=== PATIENT | female | born 1985 | race Caucasian/White ===

== ENCOUNTER 2018-04-05 08:26 | Day surgery (SDC) | payer OTHER, MEDICAID, SELFPAY ==
[2018-03-30 13:01] VITALS: BMI 25.5
[2018-04-05] VITALS (9 sets, daily range): BP systolic 80–114; BP diastolic 50–72; PULSE 50–78; RESP 10–19; TEMP 36.1–36.6; O2SAT 97–100; BMI 25.5
--- NOTE | 2018-04-05 | PATH_ITS ---
[facility] Accession Number: [id number] . 01 Material submitted: . PART A: RIGHT BREAST PART B: RIGHT BREAST TISSUE AT NIPPLE . 02 Diagnosis: A-B: Right Breast and Right Breast Tissue at Nipple, Excision: No evidence of atypical hyperplasia, in-situ, or invasive carcinoma. Dense fibrous and lobular breast parenchyma. 6mm focus with multiple small blood vessels (see comment). Fresh hemorrhage with associated neutrophils. JRL/04/08/2018 . 02 Comment: There is no neoplastic process in the excised tissue. The chronic active inflammation seen in the patient's previous biopsy is not seen in the excisional specimen. There is mild neutrophilic activity in an area of fresh hemorrhage, which may be related to the procedure. There is also fresh hemorrhage around a focal area of small to medium sized blood vessels which may represent a benign vascular lesion/arteriovenous malformation in the appropriate clinical and radiographic setting. The dense breast tissue, surrounded by adipose tissue may also explain a mass in the appropriate radiographic setting. . As part of routine water quality control engineer, Dr. Ramirez also reviewed this case and agrees with the interpretation. . 02 Electronically signed: . Sara Kelly MD, Pathologist NPI- [id number] . 01 Gross description: . (A) Received in formalin, labeled 1) Right breast lumpectomy (long-lateral), (short-superior), (double-deep), is a piece of breast tissue (4.0 cm AP, 2.8 cm SI, 1.3 cm ML) with no overlying skin. The specimen is oriented with three black sutures (long-lateral, short-superior, double-deep). A localization wire enters the central anterior aspect. The specimen is serially sectioned AP into 16 slices with the anterior and posterior resection margins as slices #1 and #16, respectively. The breast tissue is fatty and focally hemorrhagic within slices #5-#10. The localization wire ends adjacent to the hemorrhagic area in slice #9. No nodules, masses or lesions are identified. Ink code: purple-anterior; yellow-posterior; black-superior; orange-inferior; green-medial; blue-lateral. Section code: (A1) anterior resection margin, perpendicularly sectioned; (A2) slice #2; (A3) slice #3; (A4) slice #4; (A5) slice #5; (A6) slice #6; (A7) slice #7; (A8) slice #8; (A9) slice #9, slice containing the end of the localization wire; (A10) slice #10; (A11) slice #11; (A12) slice #12; (A13) slice #13; (A14) slice #14; (A15) slice #15; (A16) posterior resection margin, perpendicularly sectioned. Note: No biopsy marker is identified. (B) Received in formalin, labeled 2-additional right breast tissue at nipple, is unoriented piece of adipose tissue (1.6 x 0.9 x 0.6 cm). No nodules, masses or lesions are identified. The tissue is inked black, bisected, and entirely submitted in cassette B1. . Note: Approximate total fixation time in formalin for both specimens-31 hours 30 minutes, calculated using a collection date of 04/05/2018 with no collection time given. ([id number]) /MRV . 02 Microscopic: . Special stains for infectious organisms were performed to evaluate an area of neutrophilic activity. The control stains showed appropriate reactivity. . RESULTS: AFB: NEGATIVE GMS: NEGATIVE GRAM STAIN: NEGATIVE . INTERPRETATION: There is no evidence of mycobacteria, fungus, or bacteria by special stains, respectively. . 02 Pathologist provided ICD-10: N63.10 . 02 CPT . 279107, 894127, 535261, [id number], [id number] Performed at: 01 [facility] [address] [address], [place], [place] [id number] MD Claude Carrion MD Phone: [phone] Performed at: 02 [facility] [address] [place] [id number] MD Robert Petersen MD Phone: [phone]
--- NOTE | 2018-04-05 | DI.MG.S_ITS ---
UNILATERAL RIGHT DIGITAL DIAGNOSTIC MAMMOGRAM: 04/05/2018 CLINICAL: Pre op wire localization with ultrasound. Comparison is made to exams dated: 02/15/2018 mammogram, 01/10/2018 breast MRI, and 12/13/2017 mammogram - [facility]. The tissue of the right breast is heterogeneously dense. This may lower the sensitivity of mammography. There is a biopsy site marker on the right breast at 3 o'clock, and an US guided localization of this marker has been performed placing the wire tip 4mm dorsal to the biopsy site marker on both CC and MLO views. The marker clip placement is not significantly changed from prior post biopsy mammogram, and correlates with ultrasound findings. IMPRESSION: SUSPICIOUS OF MALIGNANCY Excellent positioning of the localization wire to guide surgical access to the small area of prior biopsy, for lumpectomy today. Specimen radiograph is anticipated thereafter. NOTE: For mammograms, a report in lay terms will be sent to the patient. Approximately 15% of breast malignancies will not be visualized mammographically. In the management of a palpable breast mass, a negative mammogram must not discourage biopsy of a clinically suspicious lesion. Electronically Signed By: Ronny Kelly M.D. [facility]/:04/08/2018 11:45:50 ACR BI-RADS Category 4: Suspicious abnormality 3344F
--- NOTE | 2018-04-05 | DI.MG.S_ITS ---
SPECIMEN RIGHT BREAST: 04/05/2018 CLINICAL: Left breast specimen. Correlation is made to exams dated: 04/05/2018 localization, 02/15/2018 mammogram, and 01/10/2018 breast MRI [facility]. A surgical specimen was imaged from the previous biopsy site located in the right breast at 3 o'clock anterior depth, with localization wire within. IMPRESSION: SPECIMEN The imaged specimen includes the distal portion of the localization wire and does not include biopsy clip. Ronny Kelly M.D. [facility]/:04/06/2018 15:01:03
--- NOTE | 2018-04-05 | DI.US.S_ITS ---
ULTRASOUND GUIDED WIRE LOCALIZATION RIGHT BREAST WITH POST MAMMOGRAPHIC IMAGING AND RADIOGRAPHIC SPECIMEN IMAGIN04/05/2018 CLINICAL: Pre-op wire localization. Correlation is made to exams dated: 02/15/2018 ultrasound biopsy, 02/15/2018 mammogram, 01/10/2018 breast MRI, 12/13/2017 ultrasound, and 12/13/2017 mammogram - [facility]. A wire localization using ultrasound guidance was performed for the marker clip located in the right breast at 3 o'clock anterior depth. This was described on the previous mammography and ultrasound reports. The skin was prepped in the usual manner. Local anesthetic was administered to the access site. A skin drew was made in the breast. The localization was approached from the lateral aspect. A J-hook wire was inserted adjacent to the marker through an introducer device under ultrasound guidance. A sterile dressing was applied to the access site. Post placement mammographic imaging demonstrates the tip 4mm posterior from the marker. IMPRESSION: WIRE LOCALIZATION Wire localization for the marker clip in the right breast at 3 o'clock anterior depth was successful. The imaged specimen includes the distal portion of the localization wire and does not include biopsy clip. Ronny Kelly M.D. [facility]/:04/08/2018 11:44:24
--- NOTE | 2018-04-05 09:04 | SUR.PREOP ---
hcg test done and is negative see package.. unable to enter into [employer] system.
--- NOTE | 2018-04-05 11:37 | PM.PREOP ---
Pre-operative Note Interval Note Pre-op Check: History & Physical Reviewed by Physician and Exam Performed H&P completed within 30 days and has changed as indicated here:: Patient seen and marked in preoperative area. No change in history and physical examination as documented on March 28, 2018. Preoperative needle localization x-rays are reviewed. We will proceed as planned with lumpectomy.
[2018-04-05] MEDS: CEFAZOLIN 2 GM/100 ML FROZ.PIGGY IV (11:54)
--- NOTE | 2018-04-05 12:14 | SUR.OPER ---
Supine on padded OR bed, head on pillow, arm padded and tucked at side, legs uncrossed, safety belt at thigh, tape over blanket over lower legs .
[2018-04-05] MEDS: LIDOCAINE 1% W/EPI INJ 30 ML INJ (12:19)
[2018-04-05] MEDS: BUPIVACAINE 0.5% (PF) 30 ML VIAL INJ (12:20)
--- NOTE | 2018-04-05 13:03 | PM.OP.1 ---
Operative Date/Time/Diagnoses - Date of procedure: 04/05/18 Time of procedure: 13:03 Pre-op diagnosis: Right breast mammographic lesion Post-op diagnosis: same Procedure & Clinicians Procedure: Right breast needle localization lumpectomy Same procedure as scheduled: Yes Indications: 32-year-old female who presented with abnormal nipple drainage, retraction, and induration on examination. Mammogram and ultrasound confirmed a suspicious lesion. Ultrasound-guided biopsy showed granulation tissue and inflammatory tissue only. However, the biopsy was felt to be not fundraising sale representative of the lesion and potentially nondiagnostic. Therefore needle localization lumpectomy was recommended. Surgeon: Riki Martin Click Yes if Unassisted: Yes Anesthesia Type: General Operative Notes Findings: 1. Right breast inflammatory tissue deep to the nipple complex 2. Right breast lumpectomy specimen with intact needle localization device in normal position 3. Specimen radiograph initially without evidence of previously placed biopsy marker clip 4. Gross visualization of the existing biopsy marker clip located within the subcutaneous tissue at the inferior aspect of the nipple, which was not its original location. Biopsy marker clip it clearly been dislodged during the lumpectomy procedure. 5. No palpable obvious residual masses or breast pathology following lumpectomy Closure Type: primary Specimen(s): other (1. Right breast lumpectomy 2. Additional breast tissue at the nipple) Implants & Drains: None Estimated Blood Loss (mL): 10 Procedure in detail: After obtaining informed consent the patient was brought to the operating room and placed supine on the table. Right breast needle localization had been performed in the radiology department preoperatively. These films were reviewed prior to surgery and confirmed. Right breast was prepped and draped in usual sterile fashion after satisfactory induction of general anesthesia. A SCOAP time-out was performed per standard protocol. Curvilinear incision at the inferior border of the areola was designed with a marking pen and infiltrated with a 1 1 mixture 1% lidocaine with 1 100,000 epi and 0.5% plain Marcaine. Skin incision was created with 10. Scalpel blade followed by the Bovie for hemostasis. Sharp dissection used a combination of Metzenbaum scissors a 15. Scalpel blade to perform a lumpectomy completely encompassing the needle localization wire. I should note that the wire was extracted through the incision site from its percutaneous insertion site very gently using hemostats after the initial skin incision was created. Great care was taken to avoid dislodging the needle device. Allis clamp was applied to the junction of the guide wire and breast tissue in order to maintain its relative position to the lesion and biopsy marker clip. Lumpectomy and needle localization wire were removed as a single unit and oriented. Specimen was sent for radiography. Needle was noted be intact in previously placed position within the specimen but the biopsy marker clip was not present in the specimen. At this point the cavity was reinspected and the biopsy clip was actually grossly visualized at the dermal/epidermal junction at the superior edge of the lumpectomy cavity just deep to the nipple itself. Clearly this was not where the biopsy marker clip had been previously placed. It was obvious that the clip been dislodged in some as yet unknown manner during the lumpectomy itself. Of note, this has been a recurrent issue with this particular biopsy marker clip. The marker clip was secured with an Allis clamp and additional breast tissue was excised at this level using a 15. Scalpel blade. Specimen was sent as separate permanent section. Nevertheless, I did not believe that the position of the biopsy marker clip actually represented its initial placement. Wound was irrigated with copious amount sterile saline solution and hemostasis was verified. Subcutaneous tissue was reapproximated with interrupted 3 0 Vicryl suture. Skin was closed in a running subcuticular fashion with 4 0 Monocryl suture. Dermal adhesive was placed on the skin. Anesthesia was reversed the patient extubated in the operating room. She was taken recovery in stable condition. Complications: none Condition: stable Disposition: PACU Plan for aftercare: 1. Discharge to home 2. Follow up in surgery Clinic in 2 weeks
[2018-04-05] MEDS: OXYCODONE/ACETAMINOPHEN 5/325 TABLET 1 TAB PO (13:25)
--- NOTE | 2018-04-05 13:26 | SUR.PHASEI ---
stable pacu stay, applesauce given, medicated with percocet
[2023-05-18 15:40] VITALS: BMI 25.5
== END 2018-04-05 14:00 | disposition home or self-care (01) ==
PROVIDERS: PCP Family Medicine; Visit Provider Surgery
PROC: (CPT 19301; principal; 2018-04-05 11:30)
DX: N63.10 Unspecified lump in the right breast, unspecified quadrant (principal); Z87.891 Personal history of nicotine dependence
CPT/HCPCS: 19301; 19285; 76098; 77065; 88305; 88312; J0690; J1100; J1885; J2250; J2405; J2704; J3010

== ENCOUNTER → 2018-05-12 09:44 | Outpatient (CLI) | payer OTHER, MEDICAID, SELFPAY | PROVIDERS: PCP Family Medicine; Visit Provider Surgery | DX: N61.1 Abscess of the breast and nipple (principal) | CPT/HCPCS: 87070; 87075; 87205 ==

== ENCOUNTER → 2018-06-14 11:45 | Outpatient (CLI) | payer OTHER, MEDICAID, SELFPAY ==
[2018-06-14 12:13] LABS: Add Manual Diff / Slide Review NO; Basophils Percent Auto 0.6 % (0-2); Hematocrit 39.5 % (36-46); Hemoglobin 13.3 g/dL (12.0-16.0); Lymphocytes Percent Auto 31.1 % (25-40); Mean Corpuscular HGB Conc 33.7 % (30-36); Mean Corpuscular Hemoglobin 31.2 PG (26-34); Mean Corpuscular Volume 92.6 fL (80-100); Neutrophils Absolute Auto 3200 /uL (3000-5900); Neutrophils Percent Auto 58.3 % (50-75); Platelet Count 233 X10^3/uL (150-400); Red Blood Cell Count 4.27 X10^6/uL (4.0-5.2); Red Cell Distribution Width 12.7 % (11.6-14.8); White Blood Cell Count 5.5 X10^3/uL (4.5-11.0)
[2018-06-14 12:42] LABS: Pregnancy Test Urine Negative (Negative)
[2018-06-14 12:50] LABS: Alanine Aminotransferase 42 IU/L (9-52); Albumin 4.2 g/dL (3.5-5.0); Albumin Globulin Ratio 1.6 (1.0-2.8); Alkaline Phosphatase 37 U/L (38-126); Aspartate Aminotransferase 22 IU/L (14-36); BUN Creatinine Ratio 24.3 (6-22); Bilirubin Total 1.8 mg/dL (0.2-1.3); Blood Urea Nitrogen 17 mg/dL (7-17); Calcium 9.5 mg/dL (8.4-10.2); Carbon Dioxide 29 mmol/L (22-32); Chloride 106 mmol/L (98-107); Estimated Glomerular Filt Rate > 60.0 mL/min (>60); Globulin 2.6 g/dL (1.7-4.1); Glucose 90 mg/dL (70-100); HEMOLYSIS < 15 (0-50); Magnesium 1.9 mg/dL (1.6-2.3); Potassium 4.6 mmol/L (3.4-5.1); Sodium 143 mmol/L (137-145); Total Protein 6.8 g/dL (6.3-8.2)
== END ==
PROVIDERS: PCP Family Medicine; Visit Provider Family Medicine
DX: R56.9 Unspecified convulsions (principal)
CPT/HCPCS: 36415; 80053; 81025; 83735; 85025

== ENCOUNTER 2019-10-25 03:49 | Emergency (ER) | payer OTHER, MEDICAID, SELFPAY ==
[2019-10-25 03:57] VITALS: BP 105/69; PULSE 87; RESP 18; TEMP 36.7; O2SAT 99
[2019-10-25 04:01] VITALS: PULSE 80
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
== END 2019-10-25 04:36 | disposition home or self-care (01) ==
PROVIDERS: Emergency Provider Emergency Medicine; PCP Family Medicine
DX: S53.401A Unspecified sprain of right elbow, initial encounter (principal); S60.221A Contusion of right hand, initial encounter; W22.09XA Striking against other stationary object, initial encounter
CPT/HCPCS: 73080; 73130; 99283

== ENCOUNTER → 2020-10-16 11:58 | Outpatient (CLI) | payer OTHER, MEDICAID, SELFPAY ==
--- NOTE | 2020-10-16 11:59 | DI.US.S_ITS ---
PROCEDURE: US OB <= 14 WEEKS FETUS INDICATIONS: Early viability dating OUTSIDE/PRIOR DATING DATA: Last menstrual period (LMP): 09/01/2020. LMP-based estimated date of delivery (AMBREEN): 06/08/2021 . First dating scan (date and location): 10/16/2020 . Estimated date of delivery (AMBREEN) from first dating scan: 06/04/2021 . TECHNIQUE: Real-time scanning was performed of the fetus and maternal pelvic organs, with image documentation. Endovaginal scanning was also performed to better visualize the fetus and maternal ovaries. COMPARISON: None. FINDINGS: Embryo: Peterson-rump length measures 9 mm corresponding to 7 weeks 0 days. Heart rate measures 136 beats per minute. Measurement variability in dating: +/- 4 weeks by LMP, +/- 7 days by mean sac diameter (use before 6 weeks gestation if crown-rump length not able to be measured), +/- 5 days by crown-rump length (up to 8 weeks 6 days gestation), +/- 7 days by crown-rump length (up to 13 weeks 6 days gestation). Maternal organs: Ovaries within normal limits, with right corpus luteal cyst . Limited images through the kidneys demonstrate no hydronephrosis. IMPRESSION: 7 week 0 day single living IUP. Dictated by: Varun Gomez [facility] Interpreted: Ronny Kelly MD on 10/16/2020 at 13:06 Approved by: Ronny Kelly M.D. on 10/17/2020 at 8:49
== END ==
PROVIDERS: PCP Family Medicine; Referring Provider Family Medicine; Visit Provider Family Medicine
DX: Z34.81 Encounter for supervision of other normal pregnancy, first trimester (principal); Z3A.01 Less than 8 weeks gestation of pregnancy
CPT/HCPCS: 76801

== ENCOUNTER 2020-10-27 14:02 | Emergency (ER) | payer OTHER, MEDICAID, SELFPAY ==
[2020-10-27 14:05] VITALS: BP 140/79; PULSE 98; RESP 16; TEMP 36.9; O2SAT 98; BMI 27.0
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
--- NOTE | 2020-10-27 14:47 | ED_ITS ---
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 LMP on 08/28 or 09/01/2020 with spotting with . Patient's menses duration has not been regular spots since was on Depo-Provera. Patient was on Depo-Provera with last administration March. Patient states forgot to receive June does and had conceived with this . Patient had some cramping discomfort around lunchtime today at work and noticed had vaginal bleed soak through her pants. She went to the bathroom and set on the toilet and has a gush of bleeding and unsure of passing clots or tissues. She placed paper towel and came into ER and noticed not further vaginal bleeding so far. She denies chest pain, breathing difficulty, dizziness, or urinary symptoms but feeling panicky. Patient reports was seen by Dr. Padilla on 10/17/2020 and had ultrasound done with verification of IUP. Patient reports no longer has cramping pain this time. PCP Dr. Ortiz and has an appointment with her in mid October. Patient is unsure of her blood type or Rh factor. Date of Last Menstrual Period: 09/01/20 Patient : Yes Related Data Allergies Allergy/AdvReac Type Severity Reaction Status Date / Time No Known Drug Allergies Allergy Verified 10/27/20 14:15 Review of Systems <Mike Ibrahim [employer]NAGER - Last Filed: 10/27/20 16:07> Review of Systems Narrative: General: Denies fever, chills, fatigue, malaise, sweats. HEENT: Denies sinus pain, ear pain, sore throat, difficulty swallowing, dizzin ess. Respiratory: Denies dyspnea, cough, wheezing, hemoptysis, sputum. Cardiovascular: Denies chest pain, palpitations, orthopnea, edema. Gastrointestinal: Denies nausea, vomiting, abdominal pain, diarrhea, constipation, melena. : See HPI Musculoskeletal: Denies weakness, joint pain or bony pain. Skin: Denies rash, skin lesions, or other. Neurologic: Denies weakness, headache, numbness, change in speech, confusion, seizures, incoordination. Psychiatric: See HPI 12-point review of systems is negative except for those stated above. PMFSH - <Mike VITA IbrahimP - Last Filed: 10/27/20 16:07> Past Medical History Medical history: Reports no medical history Surgical history: Reports other (D&C) [employer] history: Reports Other (Retained placenta) Date of Last Menstrual Period: 09/01/20 Patient : Yes Psychiatric history: Reports no psych history Exam [facility] - Last Filed: 10/27/20 16:07> Narrative Exam Narrative: GEN: Alert, oriented x 3, well appearing and nourished, and in no acute distress. Head: Normal cephalic, atraumatic. No scalp or temporal tenderness, palpable mass or rash. EYES: Pupils are equal, round, and reactive to light and accommodation. Extraocular muscles are intact bilaterally. There is no subconjunctival hemorrhage, exudate and sclera non-icteric. ENT: Hearing grossly intact. Nose without bleeding, purulent discharge or deviation. Mucous membrane moist, no mucosal lesion. Throat without erythema, tonsillar hypertrophy or exudate. Uvula in midline, airway patent. Neck: Trachea in midline. No JVD, non-tender without lymphadenopathy. No masses or thyroid megaly. Supple, non-tender and no meningeal signs. CARDIAC: Normal regular rate and rhythm without murmurs, gallops, or rubs. No chest wall tenderness. No peripheral edema, cyanosis or pallor. Capillary refill is less than 2 seconds. RESPIRATORY: Lungs are clear to auscultate bilaterally. No cough, wheezes, rales, or rhonchi. No stridor, respiratory distress, increase work of breathing, or accessary muscle used. ABD: Abdomen soft, nontender and non-distended. No guarding or rebound tenderne ss to palpate. Bowel sounds are normal in all 4 quadrants. There is no palpable masses or organomegaly. EXT: Full painless ROM of all extremities with no loss of sensation, strength, effusion or edema. SKIN: Warm, dry, normal color for patient. No erythema, lesions or rash over visible areas. BACK: Nontender without deformity or crepitance. No flank tenderness. NEUROLOGICAL: Alert and oriented to place, time and person. Sensation and motor function intact bilaterally. No facial droops, dysphasia. PSYCHIATRIC: Good judgement and reason, without hallucinations, abnormal affect or abnormal behaviors during the examination. Patient is not suicidal. Initial Vital Signs Initial Vital Signs: Vital Signs Temperature 98.4 F 10/27/20 14:05 Pulse Rate 98 H 10/27/20 14:05 Respiratory Rate 16 10/27/20 14:05 Blood Pressure 140/79 10/27/20 14:05 Pulse Oximetry 98 10/27/20 14:05 <Fabrizio Arana DO - Last Filed: 10/27/20 18:06> Initial Vital Signs Initial Vital Signs: Vital Signs Temperature 98.4 F 10/27/20 14:05 Pulse Rate 98 H 10/27/20 14:05 Respiratory Rate 16 10/27/20 14:05 Blood Pressure 140/79 10/27/20 14:05 Pulse Oximetry 98 10/27/20 14:05 Scores <BINA Kemp - Last Filed: 10/27/20 16:07> GCS Yaya coma scale eye opening: Spontaneous Yaya coma scale verbal response: Orientated Yaya coma scale motor response: Obey commands [place] coma scale total score: 15 Course <BINA Kemp - Last Filed: 10/27/20 16:07> Orders Ordered: ED Orders 10/27/20 14:31 US OB <= 14 weeks fetus Stat 10/27/20 14:39 ABO RH Type Stat Complete Blood Count AUTO DIFF Stat Comprehensive Metabolic Panel Stat HCG Quantitative /Beta subunit Stat 10/27/20 15:08 Urine Microscopic Stat Vital Signs Vital signs: Vital Signs - 8 hr 10/27/20 14:05 10/27/20 15:00 10/27/20 16:30 Temperature 98.4 F Pulse Rate 98 H 78 79 Respiratory Rate 16 16 16 Blood Pressure 140/79 127/56 L 105/63 Pulse Oximetry 98 99 98 <Fabrizio Arana DO - Last Filed: 10/27/20 18:06> Orders Ordered: ED Orders 10/27/20 14:31 US OB <= 14 weeks fetus Stat 10/27/20 14:39 ABO RH Type Stat Complete Blood Count AUTO DIFF Stat Comprehensive Metabolic Panel Stat HCG Quantitative /Beta subunit Stat 10/27/20 15:08 Urine Microscopic Stat Vital Signs Vital signs: Vital Signs - 8 hr 10/27/20 14:05 10/27/20 15:00 10/27/20 16:30 Temperature 98.4 F Pulse Rate 98 H 78 79 Respiratory Rate 16 16 16 Blood Pressure 140/79 127/56 L 105/63 Pulse Oximetry 98 99 98 MDM - OB/Uterine Contractions <Mike Darien-BINA Salguero - Last Filed: 10/27/20 16:07> Differential Diagnosis Differential diagnosis: Likely other (vaginal bleeding during early , demise) Medical Records Attestation: I reviewed the patient's medical records. Lab Data Result diagrams: 10/27/20 14:39 10/27/20 14:39 Labs: Lab Results 10/27/20 10/27/20 10/27/20 Range/Units 14:39 14:39 14:39 WBC 5.9 (4.5-11.0) X10^3/uL RBC 4.13 (4.0-5.2) X10^6/uL Hgb 12.8 (12.0-16.0) g/dL Hct 38.1 (36-46) % MCV 92.3 (80-100) fL MCH 31.1 (26-34) PG MCHC 33.7 (30-36) % RDW 12.5 (11.6-14.8) % Plt Count 205 (150-400) X10^3/uL Neut % (Auto) 73.2 (50-75) % Lymph % (Auto) 20.8 L (25-40) % [place] % (Auto) 5.1 (3-14) % Eos % (Auto) 0.4 L (2-4) % Baso % (Auto) 0.5 (0-2) % Neut # (Auto) 4300 (6754-0634) /uL Lymph # (Auto) 1200 (1048-3093) /uL [place] # (Auto) 300 (0-900) /uL Eos # (Auto) 0 (0-450) /uL Baso # (Auto) 0 (0-100) /uL Sodium 135 L (137-145) mmol/L Potassium 3.6 (3.4-5.1) mmol/L Chloride 105 (98-107) mmol/L Carbon Dioxide 22 (22-32) mmol/L BUN 14 (7-17) mg/dL Creatinine 0.45 L (0.52-1.04) mg/dL Estimated GFR > 60.0 (>60) mL/min BUN/Creatinine Ratio 31.1 H (6-22) Glucose 103 H (70-100) mg/dL Calcium 9.6 (8.4-10.2) mg/dL Total Bilirubin 1.4 H (0.2-1.3) mg/dL AST 26 (14-36) IU/L ALT 27 (<35) IU/L Alkaline Phosphatase 32 L (38-126) U/L Total Protein 7.1 (6.3-8.2) g/dL Albumin 4.2 (3.5-5.0) g/dL Globulin 2.9 (1.7-4.1) g/dL Albumin/Globulin Ratio 1.4 (1.0-2.8) HCG, Quant 796518 mIU/mL Urine RBC (0-5/HPF) Urine WBC (0-5/HPF) Ur Squamous Epith Cells (0-5/HPF) Urine Bacteria (None) Ur Culture Indicated? Blood Type A Positive 10/27/20 Range/Units 15:08 WBC (4.5-11.0) X10^3/uL RBC (4.0-5.2) X10^6/uL Hgb (12.0-16.0) g/dL Hct (36-46) % MCV (80-100) fL MCH (26-34) PG MCHC (30-36) % RDW (11.6-14.8) % Plt Count (150-400) X10^3/uL Neut % (Auto) (50-75) % Lymph % (Auto) (25-40) % [place] % (Auto) (3-14) % Eos % (Auto) (2-4) % Baso % (Auto) (0-2) % Neut # (Auto) (9444-8863) /uL Lymph # (Auto) (5131-0986) /uL [place] # (Auto) (0-900) /uL Eos # (Auto) (0-450) /uL Baso # (Auto) (0-100) /uL Sodium (137-145) mmol/L Potassium (3.4-5.1) mmol/L Chloride (98-107) mmol/L Carbon Dioxide (22-32) mmol/L BUN (7-17) mg/dL Creatinine (0.52-1.04) mg/dL Estimated GFR (>60) mL/min BUN/Creatinine Ratio (6-22) Glucose (70-100) mg/dL Calcium (8.4-10.2) mg/dL Total Bilirubin (0.2-1.3) mg/dL AST (14-36) IU/L ALT (<35) IU/L Alkaline Phosphatase (38-126) U/L Total Protein (6.3-8.2) g/dL Albumin (3.5-5.0) g/dL Globulin (1.7-4.1) g/dL Albumin/Globulin Ratio (1.0-2.8) HCG, Quant mIU/mL Urine RBC 0-1/hpf (0-5/HPF) Urine WBC 0-1/hpf (0-5/HPF) Ur Squamous Epith Cells 0-1 /hpf (0-5/HPF) Urine Bacteria None seen (None) Ur Culture Indicated? Cult not indicated Blood Type Urine Dip Bedside Urine Glucose Negative Bedside Urine Bilirubin - Negative Bedside Urine Ketone - Negative Urine Specific Dalton 1.030 Bedside Urine Occult Blood + Bedside Urine pH 60 Bedside Urine Protein - Negative Bedside Urine Leukocytes - Negative Esterase MDM Narrative Medical decision making narrative: This is a 35 year female, , high risk preganancy who had IUP verified on 10/17/2020 presents to ED with chief complain of vaginal bleeding around lunch time at work. LMP either 08/28 or 09/01/2020 with spotting on Depo-Provera missed June. Patient had abdominal cramping before vaginal bleeding which has resolved. Patient reports no further bleeding at this time. HR improved to 70's and within normal limits of blood pressure. Patient denies further vaginal bleeding at this time. Unremarkable chemistry test. Quantitative hCG 113,900. Stable H&H. Waiting for pelvic ultrasound results and rest of the lab results. Discussed with the patient to contact PCP on Wednesday to set up a follow-up appointment in 2 days with repeat quantitative hCG check. Return precautions discussed with patient and advised pelvic rest. Signed out to Dr. Arana for disposition of the patient after the US result. <Fabrizio Arana, DO - Last Filed: 10/27/20 18:06> Lab Data Labs: Lab Results 10/27/20 10/27/20 10/27/20 Range/Units 14:39 14:39 14:39 WBC 5.9 (4.5-11.0) X10^3/uL RBC 4.13 (4.0-5.2) X10^6/uL Hgb 12.8 (12.0-16.0) g/dL Hct 38.1 (36-46) % MCV 92.3 (80-100) fL MCH 31.1 (26-34) PG MCHC 33.7 (30-36) % RDW 12.5 (11.6-14.8) % Plt Count 205 (150-400) X10^3/uL Neut % (Auto) 73.2 (50-75) % Lymph % (Auto) 20.8 L (25-40) % [place] % (Auto) 5.1 (3-14) % Eos % (Auto) 0.4 L (2-4) % Baso % (Auto) 0.5 (0-2) % Neut # (Auto) 4300 (5656-8930) /uL Lymph # (Auto) 1200 (8642-8149) /uL [place] # (Auto) 300 (0-900) /uL Eos # (Auto) 0 (0-450) /uL Baso # (Auto) 0 (0-100) /uL Sodium 135 L (137-145) mmol/L Potassium 3.6 (3.4-5.1) mmol/L Chloride 105 (98-107) mmol/L Carbon Dioxide 22 (22-32) mmol/L BUN 14 (7-17) mg/dL Creatinine 0.45 L (0.52-1.04) mg/dL Estimated GFR > 60.0 (>60) mL/min BUN/Creatinine Ratio 31.1 H (6-22) Glucose 103 H (70-100) mg/dL Calcium 9.6 (8.4-10.2) mg/dL Total Bilirubin 1.4 H (0.2-1.3) mg/dL AST 26 (14-36) IU/L ALT 27 (<35) IU/L Alkaline Phosphatase 32 L (38-126) U/L Total Protein 7.1 (6.3-8.2) g/dL Albumin 4.2 (3.5-5.0) g/dL Globulin 2.9 (1.7-4.1) g/dL Albumin/Globulin Ratio 1.4 (1.0-2.8) HCG, Quant 861105 mIU/mL Urine RBC (0-5/HPF) Urine WBC (0-5/HPF) Ur Squamous Epith Cells (0-5/HPF) Urine Bacteria (None) Ur Culture Indicated? Blood Type A Positive 10/27/20 Range/Units 15:08 WBC (4.5-11.0) X10^3/uL RBC (4.0-5.2) X10^6/uL Hgb (12.0-16.0) g/dL Hct (36-46) % MCV (80-100) fL MCH (26-34) PG MCHC (30-36) % RDW (11.6-14.8) % Plt Count (150-400) X10^3/uL Neut % (Auto) (50-75) % Lymph % (Auto) (25-40) % [place] % (Auto) (3-14) % Eos % (Auto) (2-4) % Baso % (Auto) (0-2) % Neut # (Auto) (2054-5125) /uL Lymph # (Auto) (4691-4063) /uL [place] # (Auto) (0-900) /uL Eos # (Auto) (0-450) /uL Baso # (Auto) (0-100) /uL Sodium (137-145) mmol/L Potassium (3.4-5.1) mmol/L Chloride (98-107) mmol/L Carbon Dioxide (22-32) mmol/L BUN (7-17) mg/dL Creatinine (0.52-1.04) mg/dL Estimated GFR (>60) mL/min BUN/Creatinine Ratio (6-22) Glucose (70-100) mg/dL Calcium (8.4-10.2) mg/dL Total Bilirubin (0.2-1.3) mg/dL AST (14-36) IU/L ALT (<35) IU/L Alkaline Phosphatase (38-126) U/L Total Protein (6.3-8.2) g/dL Albumin (3.5-5.0) g/dL Globulin (1.7-4.1) g/dL Albumin/Globulin Ratio (1.0-2.8) HCG, Quant mIU/mL Urine RBC 0-1/hpf (0-5/HPF) Urine WBC 0-1/hpf (0-5/HPF) Ur Squamous Epith Cells 0-1 /hpf (0-5/HPF) Urine Bacteria None seen (None) Ur Culture Indicated? Cult not indicated Blood Type Urine Dip Bedside Urine Glucose Negative Bedside Urine Bilirubin - Negative Bedside Urine Ketone - Negative Urine Specific [place] 1.030 Bedside Urine Occult Blood + Bedside Urine pH 60 Bedside Urine Protein - Negative Bedside Urine Leukocytes - Negative Esterase Discharge Plan Departure Patient Disposition: Home Clinical Impression: Vaginal bleeding affecting early Instructions: DI for Vaginal Bleeding During Activity Restrictions/Additional Instructions: You have been diagnosed with [vaginal bleeding during 1st trimester. Quant hCG 113,900 today and need to follow-up in couple of days for recheck.]. What to do: *Take your medications as directed. *Follow up with your primary care provider in 2-3 days, call for an appointment. Let them know you were seen in the ED and that we asked you to be seen in follow up. Pelvic rest until clear by PCP. Please hydrate adequately. *Return to ED if you have any new, worsening, or concerning symptoms, such as [chest pain, breathing difficulty, dizziness, increasing vaginal bleeding soaking the requires regular pad change due soaking the pad every hour for 3 hours, severe abdominal pain, unable to tolerate fluids or any acute concerns]. Referrals: Lynda Ortiz DO [Primary Care Provider] - <Fabrizio Arana DO - Last Filed: 10/27/20 18:06> Cosign ED Attending Jessica Attestation: I was immediately available in the department for consultation. This documentation has been reviewed and I agree with assessment and plan. Supervised by Fabrizio Arana DO
[2020-10-27 14:59] LABS: Alanine Aminotransferase 27 IU/L (<35); Albumin 4.2 g/dL (3.5-5.0); Albumin Globulin Ratio 1.4 (1.0-2.8); Alkaline Phosphatase 32 U/L (38-126); Aspartate Aminotransferase 26 IU/L (14-36); BUN Creatinine Ratio 31.1 (6-22); Bilirubin Total 1.4 mg/dL (0.2-1.3); Blood Urea Nitrogen 14 mg/dL (7-17); Calcium 9.6 mg/dL (8.4-10.2); Carbon Dioxide 22 mmol/L (22-32); Chloride 105 mmol/L (98-107); Estimated Glomerular Filt Rate > 60.0 mL/min (>60); Globulin 2.9 g/dL (1.7-4.1); Glucose 103 mg/dL (70-100); Potassium 3.6 mmol/L (3.4-5.1); Sodium 135 mmol/L (137-145); Total Protein 7.1 g/dL (6.3-8.2)
[2020-10-27 15:00] VITALS: BP 127/56; PULSE 78; RESP 16; O2SAT 99
[2020-10-27 15:39] LABS: HCG Quantitative /Beta subunit 113900 mIU/mL; HEMOLYSIS 22 (0-50)
[2020-10-27 15:50] LABS: Bacteria Urine None Seen
[2020-10-27 15:54] LABS: Add Manual Diff / Slide Review NO; Basophils Absolute Auto 0 /uL (0-100); Basophils Percent Auto 0.5 % (0-2); Eosinophils Absolute Auto 0 /uL (0-450); Eosinophils Percent Auto 0.4 % (2-4); Hematocrit 38.1 % (36-46); Hemoglobin 12.8 g/dL (12.0-16.0); Lymphocytes Absolute Auto 1200 /uL (1100-4500); Lymphocytes Percent Auto 20.8 % (25-40); Mean Corpuscular HGB Conc 33.7 % (30-36); Mean Corpuscular Hemoglobin 31.1 PG (26-34); Mean Corpuscular Volume 92.3 fL (80-100); Monocytes Absolute Auto 300 /uL (0-900); Monocytes Percent Auto 5.1 % (3-14); Neutrophils Absolute Auto 4300 /uL (1500-7000); Neutrophils Percent Auto 73.2 % (50-75); Platelet Count 205 X10^3/uL (150-400); Red Blood Cell Count 4.13 X10^6/uL (4.0-5.2); Red Cell Distribution Width 12.5 % (11.6-14.8); White Blood Cell Count 5.9 X10^3/uL (4.5-11.0)
[2020-10-27 16:09] LABS: Culture Indicated Urine Cult Not Indicated; RBC Urine 0-1/HPF (0-5/HPF); Squamous Epithelial Cell Urine 0-1 /HPF (0-5/HPF); WBC Urine 0-1/HPF (0-5/HPF)
[2020-10-27 16:30] VITALS: BP 105/63; PULSE 79; RESP 16; O2SAT 98
== END 2020-10-27 17:12 | disposition home or self-care (01) ==
PROVIDERS: Emergency Provider Nurse Practitioner Family; PCP Family Medicine
DX: O20.9 Hemorrhage in early pregnancy, unspecified (principal); Z3A.08 8 weeks gestation of pregnancy
CPT/HCPCS: 36415; 76801; 76817; 80053; 81003; 81015; 84702; 85025; 86900; 86901; 99284

== ENCOUNTER → 2020-11-07 07:59 | Outpatient (CLI) | payer OTHER, MEDICAID, SELFPAY ==
--- NOTE | 2020-11-07 08:00 | DI.US.S_ITS ---
PROCEDURE: US OB <= 14 WEEKS FETUS INDICATIONS: SPOTTING OUTSIDE/PRIOR DATING DATA: Last menstrual period (LMP): 09/01/2020. LMP-based estimated date of delivery (AMBREEN): 06/08/2021. First dating scan (date and location): 10/16/2020. Estimated date of delivery (AMBREEN) from first dating scan: 06/04/2021 TECHNIQUE: Real-time scanning was performed of the fetus and maternal pelvic organs, with image documentation. Endovaginal scanning was also performed to better visualize the fetus and maternal ovaries. COMPARISON: [facility], OB <= 14 WEEKS FETUS, 10/27/2020, 14:47. FINDINGS: Embryo: Webb-rump length measures 3.6 cm corresponding to 10 weeks 3 days. Embryonic heart rate measuring 165 beats per minute. Prominent mid get herniation is present likely physiologic but follow-up is recommended. No definite radiographic abnormality. If pain persists with conservative management, consider cross sectional imaging such as CT or MRI for further assessment. Hydrocephalus is seen. Measurement variability in dating: +/- 4 weeks by LMP, +/- 7 days by mean sac diameter (use before 6 weeks gestation if crown-rump length not able to be measured), +/- 5 days by crown-rump length (up to 8 weeks 6 days gestation), +/- 7 days by crown-rump length (up to 13 weeks 6 days gestation). Maternal organs: Ovaries within normal limits, with right corpus luteal cyst . Limited images through the kidneys demonstrate no hydronephrosis. IMPRESSION: 1. Single living IUP redemonstrated with age estimated at 10 weeks 3 days corresponding to ultrasound AMBREEN of 06/04/2021. 2. Probable prominent physiologic mid gut herniation. Given the prominence, continued sonographic surveillance is recommended to assure resolution and exclude underlying gastroschisis. 3. No definite radiographic abnormality. If pain persists with conservative management, consider cross sectional imaging such as CT or MRI for further assessment. Hydrocephalus is seen at this early stage but the ventricles also can be reassessed on follow-up examination. Dictated by: Varun Gomez Shadi Interpreted: Ronny Kelly MD on 11/07/2020 at 9:54 Approved by: Ronny Kelly M.D. on 11/07/2020 at 13:47
== END ==
PROVIDERS: PCP Family Medicine; Referring Provider Family Medicine; Visit Provider Family Medicine
DX: O20.9 Hemorrhage in early pregnancy, unspecified (principal); Z3A.10 10 weeks gestation of pregnancy
CPT/HCPCS: 76801; 76817

== ENCOUNTER → 2020-11-11 09:22 | Outpatient (CLI) | payer OTHER, MEDICAID, SELFPAY ==
[2020-11-11 10:05] LABS: Add Manual Diff / Slide Review NO; Basophils Absolute Auto 0 /uL (0-100); Basophils Percent Auto 0.4 % (0-2); Eosinophils Absolute Auto 100 /uL (0-450); Eosinophils Percent Auto 2.4 % (2-4); Hematocrit 38.3 % (36-46); Lymphocytes Absolute Auto 1200 /uL (1100-4500); Lymphocytes Percent Auto 25.3 % (25-40); Mean Corpuscular Hemoglobin 31.3 PG (26-34); Mean Corpuscular Volume 92.1 fL (80-100); Monocytes Absolute Auto 300 /uL (0-900); Monocytes Percent Auto 6.3 % (3-14); Neutrophils Absolute Auto 3100 /uL (1500-7000); Neutrophils Percent Auto 65.6 % (50-75); Platelet Count 187 X10^3/uL (150-400); Red Blood Cell Count 4.16 X10^6/uL (4.0-5.2); Red Cell Distribution Width 12.6 % (11.6-14.8); White Blood Cell Count 4.8 X10^3/uL (4.5-11.0)
[2020-11-11 10:10] LABS: Appearance Urine UA CLEAR; Bilirubin Urine UA NEGATIVE (NEGATIVE); Color Urine UA YELLOW; Glucose Urine UA NEGATIVE (Negative); Ketones Urine UA NEGATIVE (NEGATIVE); Leukocyte Esterase Urine UA TRACE (NEGATIVE); Nitrite Urine UA NEGATIVE (Negative); Occult Blood Urine UA NEGATIVE (Negative); Protein Urine UA NEGATIVE (Negative); Specific Gravity Urine UA 1.025 (1.000-1.035); Urobilinogen Urine UA 0.2 E.U./dL (0.2)
[2020-11-11 10:18] LABS: pH Urine UA 7.5 (4.5-8.0)
[2020-11-11 10:19] LABS: RBC Urine None Seen (0-5/HPF)
[2020-11-11 10:23] LABS: Bacteria Urine Moderate (10-30); Squamous Epithelial Cell Urine 1-5 /HPF (0-5/HPF); WBC Urine 1-5/HPF (0-5/HPF)
[2020-11-11 11:18] LABS: Hepatitis B Surface Antigen NEGATIVE s/c (NEGATIVE); Rubella Antibody IgG 14.3 IU/mL (>15)
[2020-11-11 11:33] LABS: HIV 1 & 2 Ab/Ag 4th Gen Combo NEGATIVE (NEGATIVE); Hep C Virus Ab w/Reflex Quant NEGATIVE s/c (NEGATIVE); Urine N gonorrhoeae NOT DETECTED
[2020-11-11 11:43] LABS: Urine Chlamydia NOT DETECTED
[2020-11-12 07:36] LABS: RPR Screen Non Reactive (Non Reactive)
[2020-11-12 08:16] LABS: Varicella IgG Antibody 275 index (Immune >165)
== END ==
PROVIDERS: PCP Family Medicine; Referring Provider Family Medicine; Visit Provider Family Medicine
DX: Z34.81 Encounter for supervision of other normal pregnancy, first trimester (principal); Z11.3 Encounter for screening for infections with a predominantly sexual mode of transmission; Z11.8 Encounter for screening for other infectious and parasitic diseases; Z3A.11 11 weeks gestation of pregnancy
CPT/HCPCS: 36415; 80055; 81003; 81015; 86787; 86803; 86850; 86900; 86901; 87086; 87389; 87491; 87591

== ENCOUNTER 2020-11-13 04:03 | Emergency (ER) | payer OTHER, MEDICAID, SELFPAY ==
[2020-11-13] VITALS (7 sets, daily range): BP systolic 102–110; BP diastolic 56–68; PULSE 59–88; RESP 16; TEMP 36.8; O2SAT 99–100
--- NOTE | 2020-11-13 04:18 | DI.US.S_ITS ---
PROCEDURE: US OB <= 14 WEEKS FETUS INDICATIONS: BLEEDING OUTSIDE/PRIOR DATING DATA: Last menstrual period (LMP): 09/01/20. LMP-based estimated date of delivery (AMBREEN): 06/08/21. First dating scan (date and location): 10/16/20. Estimated date of delivery (AMBREEN) from first dating scan: 06/04/21. TECHNIQUE: Real-time scanning was performed of the fetus and maternal pelvic organs, with image documentation. Endovaginal scanning was also performed to better visualize the fetus and maternal ovaries. COMPARISON: [facility], OB <= 14 WEEKS FETUS, 11/07/2020, 8:21. [facility], OB <= 14 WEEKS FETUS, 10/27/2020, 14:47. FINDINGS: Embryo: Viable intrauterine gestation with crown-rump length 4.4 cm correlates with a gestational age of 11 weeks 2 days, and heart rate is 171 beats per minute. There is a placental abruption measuring 1.9 x 5.9 x 4.9 cm. Associated adjacent hematoma is present. Measurement variability in dating: +/- 4 weeks by LMP, +/- 7 days by mean sac diameter (use before 6 weeks gestation if crown-rump length not able to be measured), +/- 5 days by crown-rump length (up to 8 weeks 6 days gestation), +/- 7 days by crown-rump length (up to 13 weeks 6 days gestation). Maternal organs: Ovaries not seen . Limited images through the kidneys demonstrate no hydronephrosis. IMPRESSION: Viable intrauterine gestation with appropriate interval growth from 1st OB ultrasound. Placental abruption appears present measuring 1.9 x 5.9 x 4.9 cm with adjacent small to moderate hematoma. Dictated by: Ronny Kelly M.D. on 11/13/2020 at 8:50 Approved by: Ronny Kelly M.D. on 11/13/2020 at 8:53
--- NOTE | 2020-11-13 04:19 | ED_ITS ---
HPI - General Chief complaint: OB/Uterine Contractions Stated complaint: 11 wks , bleeding Time Seen by Provider: 11/13/20 04:09 Source: patient Mode of arrival: Ambulatory Limitations: no limitations History of Present Illness HPI Narrative: The patient awoke tonight with vaginal bleeding. She is G5, P3. With this she is experienced multiple episodes of bleeding. IUP has been confirmed. She has now had multiple ultrasounds. Ultrasound last week revealed a heart rate. Hydrocephalus was noted. 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 She awoke tonight from sleep about 1:00 a.m., bleeding. Since then cramping and bleeding has increased. She has not passed tissue. She has no illness, she has no fever chills. She has no cough or dyspnea. She denies urinary discomfort. She does nausea, vomiting or diarrhea. Related Data Previous Rx's Medication Instructions Recorded vits no.126-ferrous fum 1 tab PO DAILY #90 tab 11/05/20 28 mg iron-folic acid 800 mcg tablet Allergies Allergy/AdvReac Type Severity Reaction Status Date / Time No Known Drug Allergies Allergy Verified 10/27/20 14:15 Review of Systems Constitutional Constitutional: Denies chills, Denies fatigue and Denies fever(s) Cardiovascular Cardiovascular: Reports dyspnea Respiratory Respiratory: Reports cough and Reports dyspnea Gastrointestinal Gastrointestinal: Denies nausea and Denies vomiting Comments: Cramping abdominal pain. Genitourinary Genitourinary: Denies dysuria Genitourinary: Denies dysuria Musculoskeletal Musculoskeletal: Denies back pain Endocrine Endocrine: Denies fatigue PMFSH - Past Medical History Medical history: Reports no medical history Surgical history: Reports other (D&C) Psychiatric history: Reports no psych history Exam Initial Vital Signs Initial Vital Signs: Vital Signs Temperature 98.2 F 11/13/20 04:25 Pulse Rate 69 11/13/20 04:25 Respiratory Rate 16 11/13/20 04:25 Pulse Oximetry 99 11/13/20 04:25 Const General: cooperative and well developed Nutritional Appearance: well nourished Resp Auscultation: clear to auscultation bilaterally Cardio Rate: regular rate Rhythm: regular rhythm Heart Sounds: S1 normal, S2 normal, no click, no gallops, no murmurs and no rubs Pulses: normal peripheral pulses GI Inspection: non-distended Palpation: soft, no hepatosplenomegaly, No guarding, No pulsatile mass and No tender Auscultation: normal bowel sounds Back/Spine/Pelvis Back: No CVA tenderness Skin General: no rashes or lesions noted Neuro General: patient alert, patient oriented x3, gait normal and no focal motor deficits Speech: speech normal Extrem General: no calf tenderness Course Course Course Narrative: The ultrasound report confirms a living IUP at 11 weeks. The electrician technician to do this study felt there was intrauterine blood. No additional details were given in the formal report. Orders Ordered: ED Orders 11/13/20 04:17 ABO RH Type Stat Complete Blood Count AUTO DIFF Stat Comprehensive Metabolic Panel Stat 11/13/20 04:18 US OB <= 14 weeks fetus Stat Sodium Chloride (Normal Saline 0.9%) 1,000 mls @ 150 mls/hr IV CONT TIKI Last Admin: 11/13/20 04:57 Dose: 150 mls/hr Documented by: Vital Signs Vital signs: Vital Signs - 8 hr 11/13/20 04:25 11/13/20 04:30 11/13/20 04:31 Temperature 98.2 F Pulse Rate 69 73 71 Respiratory Rate 16 Blood Pressure 108/68 Pulse Oximetry 99 99 100 11/13/20 05:00 11/13/20 05:30 11/13/20 06:00 Temperature Pulse Rate 64 88 62 Respiratory Rate Blood Pressure 102/60 104/56 L Pulse Oximetry 99 100 99 11/13/20 06:30 Temperature Pulse Rate 59 L Respiratory Rate Blood Pressure 110/58 L Pulse Oximetry 99 MDM - OB/Uterine Contractions Lab Data Result diagrams: 11/13/20 04:25 11/13/20 04:25 Labs: Lab Results 11/13/20 11/13/20 11/13/20 Range/Units 04:25 04:25 04:25 WBC 5.3 (4.5-11.0) X10^3/uL RBC 4.11 (4.0-5.2) X10^6/uL Hgb 12.7 (12.0-16.0) g/dL Hct 37.6 (36-46) % MCV 91.4 (80-100) fL MCH 30.8 (26-34) PG MCHC 33.7 (30-36) % RDW 12.6 (11.6-14.8) % Plt Count 195 (150-400) X10^3/uL Neut % (Auto) 59.9 (50-75) % Lymph % (Auto) 29.0 (25-40) % [place] % (Auto) 7.9 (3-14) % Eos % (Auto) 2.7 (2-4) % Baso % (Auto) 0.5 (0-2) % Neut # (Auto) 3200 (8145-0326) /uL Lymph # (Auto) 1500 (5429-5540) /uL [place] # (Auto) 400 (0-900) /uL Eos # (Auto) 100 (0-450) /uL Baso # (Auto) 0 (0-100) /uL Sodium 134 L (137-145) mmol/L Potassium 3.8 (3.4-5.1) mmol/L Chloride 105 (98-107) mmol/L Carbon Dioxide 25 (22-32) mmol/L BUN 13 (7-17) mg/dL Creatinine 0.39 L (0.52-1.04) mg/dL Estimated GFR > 60.0 (>60) mL/min BUN/Creatinine Ratio 33.3 H (6-22) Glucose 96 (70-100) mg/dL Calcium 9.0 (8.4-10.2) mg/dL Total Bilirubin 0.5 (0.2-1.3) mg/dL AST 20 (14-36) IU/L ALT 18 (<35) IU/L Alkaline Phosphatase 33 L (38-126) U/L Total Protein 6.5 (6.3-8.2) g/dL Albumin 3.9 (3.5-5.0) g/dL Globulin 2.6 (1.7-4.1) g/dL Albumin/Globulin Ratio 1.5 (1.0-2.8) Blood Type A Positive Urine Dip Bedside Urine Glucose Negative Bedside Urine Bilirubin - Negative Bedside Urine Ketone - Negative Urine Specific [place] 1.015 Bedside Urine Occult Blood + Bedside Urine pH 6.0 Bedside Urine Protein - Negative Bedside Urine Urobilinogen - Negative Bedside Urine Nitrite - Negative Bedside Urine Leukocytes - Negative Esterase Imaging Data Ob ultrasound: Radiologist's Impression: Living 11+ 2 week IUP. FHT 171 beats per minute. Discharge Plan Departure Patient Disposition: Home Clinical Impression: Threatened miscarriage Instructions: DI for Miscarriage Activity Restrictions/Additional Instructions: The ultrasounds reveals an 11 week with cardiac activity. Rest at home. Limit your activity. Contact her doctor today for follow-up. Return here as needed. Prescriptions: No Action Classic 28 mg iron- 800 mcg tablet 1 tab PO DAILY Qty: 90 RF: 3 Referrals: Lynda Ortiz DO [Primary Care Provider] -
[2020-11-13 04:40] LABS: Add Manual Diff / Slide Review NO; Basophils Absolute Auto 0 /uL (0-100); Basophils Percent Auto 0.5 % (0-2); Eosinophils Absolute Auto 100 /uL (0-450); Eosinophils Percent Auto 2.7 % (2-4); Hematocrit 37.6 % (36-46); Hemoglobin 12.7 g/dL (12.0-16.0); Lymphocytes Absolute Auto 1500 /uL (1100-4500); Mean Corpuscular HGB Conc 33.7 % (30-36); Mean Corpuscular Hemoglobin 30.8 PG (26-34); Mean Corpuscular Volume 91.4 fL (80-100); Monocytes Absolute Auto 400 /uL (0-900); Monocytes Percent Auto 7.9 % (3-14); Neutrophils Absolute Auto 3200 /uL (1500-7000); Neutrophils Percent Auto 59.9 % (50-75); Platelet Count 195 X10^3/uL (150-400); Red Blood Cell Count 4.11 X10^6/uL (4.0-5.2); Red Cell Distribution Width 12.6 % (11.6-14.8); White Blood Cell Count 5.3 X10^3/uL (4.5-11.0)
[2020-11-13 04:47] LABS: Alanine Aminotransferase 18 IU/L (<35); Albumin 3.9 g/dL (3.5-5.0); Albumin Globulin Ratio 1.5 (1.0-2.8); Alkaline Phosphatase 33 U/L (38-126); Aspartate Aminotransferase 20 IU/L (14-36); BUN Creatinine Ratio 33.3 (6-22); Bilirubin Total 0.5 mg/dL (0.2-1.3); Blood Urea Nitrogen 13 mg/dL (7-17); Carbon Dioxide 25 mmol/L (22-32); Chloride 105 mmol/L (98-107); Estimated Glomerular Filt Rate > 60.0 mL/min (>60); Globulin 2.6 g/dL (1.7-4.1); Glucose 96 mg/dL (70-100); HEMOLYSIS < 15 (0-50); Potassium 3.8 mmol/L (3.4-5.1); Sodium 134 mmol/L (137-145); Total Protein 6.5 g/dL (6.3-8.2)
[2020-11-13] MEDS: SODIUM CHLORIDE 0.9% 1,000 ML 150 ML IV (04:57)
== END 2020-11-13 06:54 | disposition home or self-care (01) ==
PROVIDERS: Emergency Provider Emergency Medicine; PCP Family Medicine
DX: O20.0 Threatened abortion (principal); Z3A.11 11 weeks gestation of pregnancy; R06.00 Dyspnea, unspecified; R05 Cough
CPT/HCPCS: 36415; 76801; 76817; 80053; 81003; 85025; 86900; 86901; 96360; 96361; 99284

== ENCOUNTER → 2021-01-07 11:48 | Outpatient (CLI) | payer OTHER, MEDICAID, SELFPAY ==
[2021-01-09 20:36] LABS: AFP Value 67.2 ng/mL (.); Gestational Age Ultrasound (.); Insulin Dep Diabetes No (.); OSBR Risk 1IN 1848 (.); Results Report (.); Test Results *Screen Negative* (.)
== END ==
PROVIDERS: PCP Family Medicine; Referring Provider Family Medicine; Visit Provider Family Medicine
DX: Z34.92 Encounter for supervision of normal pregnancy, unspecified, second trimester (principal); Z3A.15 15 weeks gestation of pregnancy
CPT/HCPCS: 36415; 82105

== ENCOUNTER → 2021-01-14 09:02 | Outpatient (CLI) | payer OTHER, MEDICAID, SELFPAY ==
--- NOTE | 2021-01-14 09:03 | DI.US.S_ITS ---
PROCEDURE: OB >= 14 WEEKS FETUS INDICATIONS: ANATOMY OUTSIDE/PRIOR DATING DATA: Last menstrual period (LMP): 09/01/2020. LMP-based estimated date of delivery (AMBREEN): 06/08/2021 . First dating scan (date and location): 10/16/2020 . Estimated date of delivery (AMBREEN) from first dating scan: 06/04/2021 . TECHNIQUE: Real-time scanning was performed of the fetus, with image documentation and biometric measurements. Endovaginal scanning: No COMPARISON: [facility], OB <= 14 WEEKS FETUS, 11/07/2020, 8:21. [facility] OB <= 14 WEEKS FETUS, 11/13/2020, 5:31. [facility], OB <= 14 WEEKS FETUS, 11/13/2020, 5:31. FINDINGS: General: A single living intrauterine gestation is present. Presentation: Variable. Placenta: Placental position is anterior , without previa. Amniotic fluid index: 15.8 cm, normal range is 5-24 cm. heart rate: 158 beats per minute. Maternal cervical canal: 3.8 cm long. Normal lower limit is 2.5 cm. biometrics: Biparietal diameter: 20 weeks 6 days Head circumference: 20 weeks 2 days Abdominal circumference: 21 weeks 2 days Femur length: 20 weeks 6 days Estimated gestational age from initial scan: 19 weeks 6 days Composite gestational age from present scan: 20 weeks 6 days Estimated weight and percentile: 393 g; 96 percentile Measurement variability for biometric dating: +/- 7 days from 14 weeks to 15 weeks 6 days gestation, +/- 10 days from 16 weeks to 21 weeks 6 days gestation, +/- 2 weeks from 22 weeks to 27 weeks 6 days gestation, +/- 3 weeks for 28 weeks gestation or later. weight reference: 4500 g or EFW >90/95% is considered macrosomia or large for gestational age. EFW <10% is small for gestational age. EFW 5% or less is considered intra-uterine growth restriction. Anatomic survey: Neuro: Ventricles are non-dilated at less than 10 mm. Cisterna magna is normal at 3-11 mm. Cerebellum is normal in size and morphology. Nuchal skin fold: Normal at less than 6 mm between 14-21 weeks gestational age. Face: Nose and lips, facial profile are normal. Spine: No evidence for spina bifida. Heart: 4-chambered heart is present, with normal ventricular outflow tracts. Diaphragm: Diaphragm is intact. Stomach: Left-sided stomach is present. Kidneys: No hydronephrosis. Normal is less than 5 mm in 2nd trimester, less than 7 mm in 3rd trimester. Cord: 3-vessel cord has orthotopic insertion. Bladder: Normal in size. Extremities: All 4 extremities identified. IMPRESSION: 1. . Single living IUP redemonstrated and interval growth is greater than expected. Follow-up growth is recommended. 2. Normal anatomic survey. Dictated by: Varun Gomez [facility] Interpreted: Manuel Duran MD on 01/14/2021 at 12:55 Approved by: Manuel Duran M.D. on 01/14/2021 at 14:01
== END ==
PROVIDERS: PCP Family Medicine; Referring Provider Family Medicine; Visit Provider Family Medicine
DX: Z36.89 Encounter for other specified antenatal screening (principal); Z3A.20 20 weeks gestation of pregnancy
CPT/HCPCS: 76811

== ENCOUNTER → 2021-03-10 08:50 | Outpatient (CLI) | payer OTHER, MEDICAID, SELFPAY ==
[2021-03-10 11:06] LABS: Hematocrit 34.9 % (36-46); Hemoglobin 11.9 g/dL (12.0-16.0)
[2021-03-10 11:46] LABS: GTT (PREG) 1 Hour PP 50gm Dose 110 mg/dL (76-139)
== END ==
PROVIDERS: PCP Family Medicine; Referring Provider Family Medicine; Visit Provider Family Medicine
DX: Z3A.26 26 weeks gestation of pregnancy (principal)
CPT/HCPCS: 36415; 82950; 85014; 85018

== ENCOUNTER → 2021-03-28 09:08 | Outpatient (CLI) | payer OTHER, MEDICAID, SELFPAY ==
--- NOTE | 2021-03-28 09:10 | DI.US.S_ITS ---
PROCEDURE: US OB LIMITED INDICATIONS: EFW; LGA OUTSIDE/PRIOR DATING DATA: Last menstrual period (LMP): 09/01/2020. LMP-based estimated date of delivery (AMBREEN): 06/08/2021 . First dating scan (date and location): 10/16/2020 . Estimated date of delivery (AMBREEN) from first dating scan: 06/04/2021 TECHNIQUE: Real-time scanning was performed of the fetus, with image documentation and biometric measurements. Endovaginal scanning: No COMPARISON: [facility], OB >= 14 WEEKS FETUS, 01/14/2021, 9:30. FINDINGS: General: A single living intrauterine gestation is present. Presentation: Vertex. Placenta: Placental position is anterior , without previa. Amniotic fluid index: 14.3 cm, normal range is 5-24 cm. heart rate: 145 beats per minute. Maternal cervical canal: 4.4 cm long. Normal lower limit is 2.5 cm. biometrics: Biparietal diameter: 33 weeks Head circumference: 32 weeks 3 days Abdominal circumference: 32 weeks 5 days Femur length: 31 weeks 4 days Estimated gestational age from initial scan: 30 weeks 1 day Composite gestational age from present scan: 32 weeks 3 days Estimated weight and percentile: 1956 g; 97th percentile Measurement variability for biometric dating: +/- 7 days from 14 weeks to 15 weeks 6 days gestation, +/- 10 days from 16 weeks to 21 weeks 6 days gestation, +/- 2 weeks from 22 weeks to 27 weeks 6 days gestation, +/- 3 weeks for 28 weeks gestation or later. weight reference: 4500 g or EFW >90/95% is considered macrosomia or large for gestational age. EFW <10% is small for gestational age. EFW 5% or less is considered intra-uterine growth restriction. Other: Not applicable. IMPRESSION: Single living IUP redemonstrated and interval growth is greater than expected with estimated weight 97th percentile. Developing macrosomia cannot be excluded and close clinical correlation and follow-up is recommended. Dictated by: Varun Gomez [facility] Interpreted: Manuel Duran MD on 03/28/2021 at 11:44 Transcribed by: USHA on 03/28/2021 at 11:47 Approved by: Manuel Duran M.D. on 03/28/2021 at 13:57
== END ==
PROVIDERS: PCP Family Medicine; Referring Provider Family Medicine; Visit Provider Family Medicine
DX: Z3A.28 28 weeks gestation of pregnancy (principal)
CPT/HCPCS: 76815

== ENCOUNTER → 2021-05-08 10:53 | Outpatient (CLI) | payer OTHER, MEDICAID, SELFPAY ==
[2021-05-09 11:48] LABS: Strep Grp B PCR NEG for Grp B Strep
== END ==
PROVIDERS: PCP Family Medicine; Referring Provider Family Medicine; Visit Provider Family Medicine
DX: Z34.90 Encounter for supervision of normal pregnancy, unspecified, unspecified trimester (principal); Z3A.36 36 weeks gestation of pregnancy
CPT/HCPCS: 87653

== ENCOUNTER 2021-05-11 03:30 | Inpatient (IN) | payer OTHER, MEDICAID, SELFPAY ==
--- NOTE | 2021-05-11 | PATH_ITS ---
[facility] Accession Number: [id number] . 01 Material submitted: . fallopian tube - BILATERAL FALLOPAIN TUBES . 02 Diagnosis: Bilateral Fallopian Tubes, Bilateral Salpingectomy: Complete cross-sections of fallopian tubes x2; negative for atypia or malignancy. Benign paratubal cysts (2-4 mm). MRV 05/15/2021 1216 Local . 02 Electronically signed: . Yoana Ramirez MD, Pathologist NPI- [id number] . 01 Gross description: . The specimen is received in formalin, labeled bilateral fallopian tubes and consists of two fallopian tubes measuring 7.2 cm in length by 1.2 cm in diameter and 10.0 cm in length by 1.2 cm in diameter. The serosa is pink-purple and smooth with multiple paratubal cysts ranging from 0.2-0.4 cm. Sectioning reveals a beasley mucosa and a stellate lumen measuring up to 0.5 cm in diameter. Liquor Blender sections of each fallopian tube are submitted, to include the en face margin (blue), central cross-sections and bisected fimbria in cassettes A1-A4. ([id number]) /MRV 05/13/2021 1407 Local . 02 Pathologist provided ICD-10: N83.8 . 02 CPT . 587336, [id number] Performed at: 01 [facility] [address], [place], [place] [id number] MD Claude Carrion MD Phone: [phone] Performed at: 02 [facility] [address] [place], [place] [id number] MD Sara Kelly MD Phone: [phone]
[2021-05-11 04:17] VITALS: BP 104/57
[2021-05-11] MEDS: BETAMETHASONE 30 MG/5 ML MDV 12 MG IM (05:14)
[2021-05-11 05:15] LABS: Add Manual Diff / Slide Review NO; Basophils Absolute Auto 0 /uL (0-100); Basophils Percent Auto 0.6 % (0-2); Eosinophils Absolute Auto 100 /uL (0-450); Eosinophils Percent Auto 0.9 % (2-4); Hematocrit 35.1 % (36-46); Hemoglobin 11.8 g/dL (12.0-16.0); Lymphocytes Absolute Auto 1600 /uL (1100-4500); Mean Corpuscular HGB Conc 33.5 % (30-36); Mean Corpuscular Hemoglobin 29.4 PG (26-34); Monocytes Absolute Auto 600 /uL (0-900); Monocytes Percent Auto 6.9 % (3-14); Neutrophils Absolute Auto 6300 /uL (1500-7000); Neutrophils Percent Auto 72.6 % (50-75); Platelet Count 168 X10^3/uL (150-400); Red Blood Cell Count 3.99 X10^6/uL (4.0-5.2); Red Cell Distribution Width 14.2 % (11.6-14.8); White Blood Cell Count 8.6 X10^3/uL (4.5-11.0)
[2021-05-11 06:18] LABS: COVID19 - ADMIT (NP swab/PCR) Negative (Negative)
[2021-05-11] MEDS: LACTATED RINGERS 1,000 ML 100 ML IV ×4 (06:30→17:00)
--- NOTE | 2021-05-11 07:20 | P.HPOB_ITS ---
OB HPI Date/Time Date of admission: 05/11/21 Date Patient Seen: 05/11/21 Time Patient Seen: 07:20 History of Present Condition Chief complaint: Evaluation of labor : 4 Para: 3 Estimated Date of Delivery: 06/03/21 Estimated Gestational Age (weeks): 36w5d Narrative: Fara Forde is a 35 year old at 36 weeks and 5 days. This morning she woke at approximately 1:00 a.m. and felt some fluid on herself in the bed. She did not think much of it but got up to let the dogs out and continued to have small gushes. She presented to the center where she has had ongoing leaking but denies bleeding or contractions and reports good movement. She has a complicated history. Her first she had intrauterine surgery for a pleural effusion. Baby did well and she went on to deliver at without complications. Her second she had a retained placenta requiring D&C as well as hemorrhage. Her third she again had a retained placenta, hemorrhaged then had a D&C. She was advised against future pregnancies. This was complicated by bleeding early in with subchorionic hemorrhage which resolved with rest. Early ultrasound also showed possible gastroschisis and hydrocephalus. She was evaluated by maternal medicine. Cell free DNA and ultrasound were both normal and no further follow-up needed. Repeat ultrasounds have shown normal anatomy but with macrosomia with estimated weight at the 97 percentile at 32 weeks. No GDM however she has gained 74 lbs this . OB history 08/15/08 38 wk 24 hr labor, 6 lb 12 oz male, epidural, , complicated by PIH. complicated by intrauterine surgery for pleural effusion though baby did well. 05/29/13 39 wk, 13 hr labor, 6 lb 13 oz female, w/ Dr. Blankenship, hemorrhage with retained placenta requiring D&C 12/12/15 39.6 wk, 6 lb 5 oz male, [facility], hemorrhage with retained placenta requiring D&C other History of Present care: good care, initiated at week # (10), number of visits (9) and pounds weight gain (74) Dating criteria: LMP confirmed by 1st trimester US Obstetrical complications: none Medical complications: none Preadmission Labs Blood type: A (+) positive -: Antibody screen: negative, GBS status: negative, HBsAG: negative, HIV: negative and RPR/VDLR: negative -: Chlamydia screen: not detected and Gonorrhea screen: not detected -: Rubella: not immune and Varicella: immune HCT: 35.1 HCAB: negative Cell-free DNA: Normal XX Urine: No growth 1 hr GTT: 110 Evaluation Evaluation Baseline heart rate: 135 Variability: Moderate (11-25) monitor accelerations: Present Monitor Decelerations: Absent Contraction Frequency (minutes): 10 Category of Tracing: Reactive Laboratory results: Laboratory Tests 05/11/21 05/11/21 05/11/21 05:00 05:00 05:00 WBC 8.6 RBC 3.99 L Hgb 11.8 L Hct 35.1 L MCV 88.0 MCH 29.4 MCHC 33.5 RDW 14.2 Plt Count 168 Neut % (Auto) 72.6 Lymph % (Auto) 19.0 L [place] % (Auto) 6.9 Eos % (Auto) 0.9 L Baso % (Auto) 0.6 Neut # (Auto) 6300 Lymph # (Auto) 1600 [place] # (Auto) 600 Eos # (Auto) 100 Baso # (Auto) 0 SARS-CoV-2 (PCR) Negative Blood Type A Positive Antibody Screen Negative Non-invasive Membranes Rupture Test: positive [facility] Medical History Bilateral bunions Cervical intraepithelial neoplasia grade III with severe dysplasia (07/2013) Cigarette smoker one half pack a day or less (11/04/15) DDD (degenerative disc disease) (~2012) 3 HSV-1 (herpes simplex virus 1) infection (2012) Retained placenta (2012) Tobacco abuse Vaping nicotine dependence, tobacco product (~2020) Surgical History Hx of dilation and curettage (12/12/15) Retained placenta Status post LEEP (loop electrosurgical excision procedure) of cervix (10/06/13) Status post right breast lumpectomy (04/05/18) [place] teeth extracted (~2012) Family History Grandmother Cancer Father CAD (coronary artery disease) CA (myocardial infarction) Hypertension Grandfather CA (myocardial infarction) Mother No problems noted. Grandmother Diabetes mellitus Alzheimer's dementia Grandfather Diabetes mellitus Parkinson's disease Social History marital status: unmarried,single number of children: 3 household members: significant other and family lives independently: Yes caregiver/support person: No housing: house pets and animals: Yes (2 cats, 3 dogs, chickens.) education level: college (1 year. ) occupational status: employed ([employer]. ) current occupational exposures/hazards: No special lorenzo needs: No seatbelt use: always Smoking Status: Former smoker Tobacco: How many years used: 14 quit status: has quit before (Quit 2015.) second hand exposure: No alcohol intake: former (Pre-, once or twice a month, occasional.) substance use type: does not use and marijuana (Pre-, quit with diagnosis. ) during the past year weight has: remained stable well-balanced diet: daily or most days caffeine: Yes (1 cup coffee daily, sometimes.) Type(s) of exercise: bicycling frequency: 3-4 times per week duration: 30-45 minutes/day Meds Home Medications and Allergies Home Medications Medication Instructions Recorded Confirmed Type vits no.126-ferrous fum 1 tab PO DAILY #90 tab 11/05/20 05/11/21 Rx 28 mg iron-folic acid 800 mcg tablet (Classic ) Allergies Allergy/AdvReac Type Severity Reaction Status Date / Time No Known Drug Allergies Allergy Verified 12/09/20 14:31 Review of Systems Review of Systems ROS: Yes All systems reviewed with the patient and are negative except as otherwise documented Exam Vital Signs (past 8 hours): - 05/11/21 04:17 Blood Pressure 104/57 L Temperature 36.2? blood pressure 114/56 heart rate 73 Const General: healthy appearing and comfortable HENMT Head: normal to inspection Ears: hearing grossly normal bilaterally Nose: external nose normal Face and sinus: normal facial exam Mouth: oral mucosae normal Eyes General: appearance normal, both eyes and all related structures Neck Neck: normal visual inspection Resp Effort & Inspection: normal respiratory effort Auscultation: clear to auscultation bilaterally Cardio Rate: regular rate Rhythm: regular rhythm Heart Sounds: no murmurs GI Other: Gravid Back/Spine/Pelvis Back: normal to inspection Skin General: no rashes or lesions noted Extrem General: normal to inspection and no pedal edema Objective Labs Result Diagrams: 05/11/21 05:00 Labs: Laboratory Results - last 24 hr 05/11/21 05/11/21 05/11/21 05:00 05:00 05:00 WBC 8.6 RBC 3.99 L Hgb 11.8 L Hct 35.1 L MCV 88.0 MCH 29.4 MCHC 33.5 RDW 14.2 Plt Count 168 Neut % (Auto) 72.6 Lymph % (Auto) 19.0 L [place] % (Auto) 6.9 Eos % (Auto) 0.9 L Baso % (Auto) 0.6 Neut # (Auto) 6300 Lymph # (Auto) 1600 [place] # (Auto) 600 Eos # (Auto) 100 Baso # (Auto) 0 SARS-CoV-2 (PCR) Negative Blood Type A Positive Antibody Screen Negative Assessment and Plan Assessment and Plan Assessment and Plan narrative: 35-year-old at 36 weeks and 5 days gestation here with spontaneous rupture membranes, not in labor. Patient was scheduled for primary in 2 weeks due to placental complications with her last 2 pregnancies. She was advised by a previous doctor that she could from bleeding complications should she have another . She saw Dr. Padilla at the beginning of this who offered primary given her history. Patient strongly desires primary . She also desires bilateral tubal ligation. Consent was signed for the tubal ligation on 04/08/21. Reviewed risks of again including bleeding, infection or injury to surrounding organs. She is accepting of a blood transfusion if needed. Also discussed that bilateral tubal ligation is considered permanent. She understands and would like to proceed with primary with bilateral tubal ligation. Will give 2 g of Ancef prior to surgery.
[2021-05-11] MEDS: ACETAMINOPHEN IV 1,000 MG/100 ML VIAL 400 MG IV (08:05)
--- NOTE | 2021-05-11 08:05 | PM.PREOP ---
Pre-operative Note Interval Note History & Physical reviewed/Exam performed by Physician: Yes Changes to H&P: No
[2021-05-11] MEDS: CEFAZOLIN 1 GM VIAL 2 GM IV (08:18)
--- NOTE | 2021-05-11 08:39 | SUR.OPER ---
Supine on Padded OR bed, head on pillow, safety belt at thigh, arms secured on padded arm boards at <90 degrees abduction. Bump under right buttock. Legs uncrossed with pillow under knees, gel pad to heels, tape over blanket to lower legs.
--- NOTE | 2021-05-11 08:50 | SUR.OPER ---
Viable baby Boy delivered at 0838. Placenta delivered. Cord Blood tubes X2 and Placenta given to L&D RN.
[2021-05-11 09:45] VITALS: BP 92/49; PULSE 60; RESP 11; TEMP 36.2; O2SAT 97
[2021-05-11 09:49] VITALS: BP 104/55; PULSE 57; RESP 9; O2SAT 97
--- NOTE | 2021-05-11 09:50 | PM.OBCS.1 ---
Operative Date/Time/Diagnoses Date of procedure: 05/11/21 Pre-op diagnosis: 36 weeks of Spontaneous rupture of membranes History of retained placenta and hemorrhage Post-op diagnosis: same Procedure & Clinicians Procedure: Primary low transverse section with bilateral salpingectomy Same procedure as scheduled: Yes Indications: 36 weeks of Spontaneous rupture of membranes History of retained placenta and hemorrhage Surgeon: Lynda Ortiz Spray Gun Repairer: Hailey Peter Reason for Spray Gun Repairer: Dr. Peter was present and essential to the case to perform bilateral salpingectomy as well as retraction, suturing and assist with delivery of . Operative Notes Findings: Vigorous male Normal uterus, tubes and ovaries Placenta was difficult to remove without evidence of accreta though suspect lacking Nitabuch layer to explain difficult removal Closure Type: primary Specimen(s): cord blood and tubes/segments of tubes (bilateral fallopian tubes) Intraoperative meds administered: Pitocin Applied: Catheter Estimated Blood Loss (mL): 600 Blood products transfused: none Procedure in detail: The patient was taken to the operating room where she was placed in the seated position. Spinal anesthesia was administered. She was then placed in the dorsal supine position with a leftward tilt. SCDs applied. She was prepped and draped in the usual sterile fashion. A timeout was performed. After spinal analgesia was found to be adequate, a Pfannenstiel skin incision was made 2 fingerbreadths above the pubic symphysis and carried through to the underlying layer fascia. The fascia was nicked in the midline and the incision extended bilaterally with Herring scissors, Dr. Ortiz doing the left side and Dr. Peter doing the right side. The superior aspect of the fascial incision was grasped with a Colten clamps, elevated, and the underlying rectus muscles dissected off sharply and bluntly. Attention was then turned to the inferior aspect of this incision which in a similar fashion was grasped with a Colten clamps, elevated, and the underlying rectus muscles dissected off sharply and bluntly. The rectus muscles were in the midline. The peritoneum was entered and dissected bluntly laterally by Dr. Ortiz and Dr. Peter. After entering the peritoneum there was good visualization of the bladder. The bladder blade was inserted. The vesicouterine peritoneum was identified, grasped with the pickup, and entered sharply with the Metzenbaum scissors. This incision was extended bilaterally and the bladder flap was created digitally. The bladder blade was reinserted. The lower uterine segment was incised in a transverse fashion with the scalpel. Upon entering the amniotic sac there was a large amount clear amniotic fluid. The 's head was delivered by Dr. Peter with fundal pressure by Dr. Ortiz. The remainder of the body delivered without difficulty. The cord was double clamped and cut. The was handed off to waiting RN and RT. The uterus was externalized. The placenta was slowly delivered with gentle traction. Trailing membranes were grasped with ring forceps. The uterus was cleared of all clots and debris and noted to be rough to palpation on the endometrium. The uterine incision was repaired with #1 chromic in a running interlocking fashion by Dr. Ortiz. A second layer the same suture was used for an imbricating layer by Dr. Peter due to brisk bleeding. Dr. Peter used an additional #1 chromic to control bleeding. Hemostasis was achieved. The tubes and ovaries were examined and were found to be normal. Attention was then turned to the fallopian tubes for bilateral salpingectomy with Dr. Peter. The right fallopian tube was grasped with two Babcockes and elevated by Dr. Ortiz. Starting at the fimbriae end, Dr. Peter used the PK Gyrus to cauterize the mesosalpinx. Once cauterized x2, the mesosalpinx was cut with metzenbaum scissors. The process was repeated up to the cornua then the fallopian tube cut with the PK Gyrus at the cornua. The process was repeated on the left side. Both fallopian tubes sent to pathology. The uterus was gently placed back in the pelvis. The gutters were cleared of all clots and debris. The peritoneum was closed using 2-0 Vicryl in a running fashion. The fascia was reapproximated using 0 Vicryl in a running fashion. Subcutaneous layer was copiously irrigated with warm normal saline. 3 simple interrupted sutures of 3-0 Vicryl were placed to reapproximate the subcutaneous layer. The skin was closed with 4-0 monocryl in a subcuticular fashion. Steri-Strips were placed. An Aquacel dressing was placed. The uterus was expressed of a small amount of old blood. Sponge, lap, and instrument counts were correct. The patient tolerated the procedure well, and was taken to PACU in stable condition. [place] Baby 1: Gender: Male Presentation: vertex Placental Delivery Description: Manual Removal Cord Vessel Description: 3 Vessels score (1 min): 8 score (5 min): 8 weight: 7 lb 14.281 oz Post-operative Condition: stable Disposition: PACU Aftercare: routine postop
[2021-05-11 09:54] VITALS: BP 107/55; PULSE 61; RESP 10; O2SAT 98
[2021-05-11 10:09] VITALS: BP 105/61; PULSE 74; RESP 14; O2SAT 98
--- NOTE | 2021-05-11 10:20 | SUR.PHASEI ---
report given to OB RN. Pt moved to center room 2. VSS prior to transport
[2021-05-11] MEDS: KETOROLAC 30 MG/ML VIAL IV ×2 (11:28→17:35)
[2021-05-11] MEDS: diphenhydrAMINE 50 MG/ML VIAL 25 MG IV (11:31)
[2021-05-11] MEDS: LANOLIN OINT 7 GM 1 APPLIC TOP (22:00)
[2021-05-11] MEDS: OXYCODONE IR 5 MG TABLET 10 MG PO (22:01)
[2021-05-12] MEDS: KETOROLAC 30 MG/ML VIAL IV ×2 (00:26→06:54)
[2021-05-12] MEDS: OXYCODONE IR 5 MG TABLET 10 MG PO ×2 (02:06→06:54)
[2021-05-12] MEDS: ACETAMINOPHEN 325 MG TABLET 650 MG PO ×3 (02:07→18:58)
[2021-05-12 05:58] LABS: Hematocrit 29.8 % (36-46); Hemoglobin 9.7 g/dL (12.0-16.0)
--- NOTE | 2021-05-12 08:07 | P.PNOB_ITS ---
Subjective - OB Subjective Patient comments: no complaints, pain well controlled, tolerating diet and flatus present baby status: doing well [place] feeding status: breast and bottle feeding Date Patient Seen: 05/12/21 Time Patient Seen: 08:09 Interval history: Patient denies any complaints this morning. She has been out of bed and voided. Pain well controlled with oxycodone. Vaginal bleeding is light. Infant is doing well though she is needing to breast and bottle feed. Exam Vital Signs (past 8 hours): Oxygen Delivery Method Room Air Narrative Exam Narrative: General: Awake and alert, no acute distress. HEENT: NCAT, EOMI, moist oral mucosa CV: Regular rate and rhythm, no murmurs, rubs or gallops Lungs: CTAB, no wheezes, rales, or rhonchi Abdomen: Aquacel dressing intact without drainage. Soft, nontender; bowel tones active; uterus firm 2 cm below umbilicus Extremities: Warm, no edema bilaterally Objective Labs Result Diagrams: 05/12/21 05:50 Labs: Laboratory Results - last 24 hr 05/11/21 05/12/21 05:00 05:50 Hgb 9.7 L Hct 29.8 L Blood Type A Positive Antibody Screen Negative Crossmatch See Detail Assessment & Plan Assessment and Plan (1) 36 weeks gestation of : Status: Acute (2) Status post bilateral salpingectomy: Status: Acute (3) S/P : Status: Acute Plan day: 1 plan OB: routine postop care Comments: Patient is doing well after primary with bilateral salpingectomy. Anticipate discharge home tomorrow. Time Spent With Patient Time: Total time spent is greater than 50% in coordination of care (as documented) at patient's floor/unit and/or counseling patient: Time with patient: less than 15 minutes
[2021-05-12] MEDS: IBUPROFEN 600 MG TABLET PO ×2 (12:57→18:57)
[2021-05-12] MEDS: PRENATAL VIT,CALC/IRON/FOLIC 1 TABLET 1 TAB PO (12:57)
[2021-05-12] MEDS: OXYCODONE IR 5 MG TABLET PO ×3 (12:58→23:05)
[2021-05-12] MEDS: DOCUSATE 250 MG CAPSULE PO (12:58)
[2021-05-13] MEDS: ACETAMINOPHEN 325 MG TABLET 650 MG PO ×2 (01:09→07:09)
[2021-05-13] MEDS: IBUPROFEN 600 MG TABLET PO ×2 (01:10→07:09)
[2021-05-13] MEDS: OXYCODONE IR 5 MG TABLET PO ×2 (03:02→07:09)
[2021-05-13 08:00] VITALS: BP 105/61; PULSE 74; RESP 14; TEMP 36.2
--- NOTE | 2021-05-13 08:02 | P.DS_ITS ---
Discharge Providers Provider Date of admission: 05/11/21 03:30 Discharge Date: 05/13/21 Primary care physician: Lynda Ortiz DO Consults: 05/11/21 11:17 Consult to Russian Language Instructor Routine Comment: Discharge provider: Lynda Ortiz DO Summary Hospital Course Date Patient Seen: 05/13/21 Time Patient Seen: 07:30 Diagnoses: 36 weeks of Spontaneous rupture of membranes Primary section Bilateral salpingectomy Hospital Course: Patient is a 35-year-old G4 now P4 after primary with bilateral salpingectomy at 36 weeks and 5 days gestation on 05/11/21. The plan had been for primary due to history of retained placenta x2 requiring D&C. Patient presented with spontaneous rupture of membranes so was taken for primary . She also desired permanent sterilization. Consent was signed over a month prior. Dr. Peter performed bilateral salpingectomy at the time of her primary . Surgery was uncomplicated. course has also been uncomplicated. Patient is ambulating and voiding as well as passing flatus. Vaginal bleeding is light and pain controlled with ibuprofen and oxycodone. No issues in the . Patient is eager to return home. Advised patient to call for fevers, severe pain or bleeding through more than a pad an hour. She will follow-up in clinic in 1 week for Aquacel dressing removal. Peripartum Data Infant Delivery Method: Section [place] 1: Gender: Male Disposition of : home Discharge Diagnosis (1) 36 weeks gestation of : Status: Acute (2) Status post bilateral salpingectomy: Status: Acute (3) S/P : Status: Acute Status at Discharge Cognitive/behavioral status at discharge: at baseline, oriented Functional status at discharge: independent ambulation Overall status at discharge: patient is progressing back to baseline Time Spent with Patient Time attestation: Total time spent providing and/or coordinating discharge services: Time spent: Less than 30 minutes Objective Labs Result Diagrams: 05/12/21 05:50 Exam Vital Signs (past 8 hours): Oxygen Delivery Method Room Air Temperature 98.6? blood pressure 105/52 heart rate 74 respirations 16 Narrative Exam Narrative: General: Awake and alert, no acute distress. HEENT: NCAT, EOMI, moist oral mucosa CV: Regular rate and rhythm, no murmurs, rubs or gallops Lungs: CTAB, no wheezes, rales, or rhonchi Abdomen: Aquacel dressing intact without drainage. Soft, nontender; bowel tones active; uterus firm 2 cm below umbilicus Extremities: Warm, no edema bilaterally Discharge Plan Discharge Plan Patient Disposition: Home Provider Discharge Comment: Call for fevers, severe pain or bleeding through more than a pad an hour. Discharge orders & Medications Prescriptions: New docusate sodium 250 mg Capsule 250 mg PO DAILY Qty: 30 RF: 0 ibuprofen 600 mg Tablet 600 mg PO Q6H PRN (Reason: Fever/Mild Pain (1-3)) Qty: 30 RF: 0 oxycodone 5 mg Tablet 5 mg PO Q4H PRN (Reason: Pain, Moderate (4-6)) Qty: 20 RF: 0 Continued Classic 28 mg iron- 800 mcg tablet 1 tab PO DAILY Qty: 90 RF: 3 Follow up/Referrals: Lynda Ortiz DO [Primary Care Provider] - 05/19/21 12:00 pm Visit Report/Discharge Packet Visit Report Forms: Patient Portal/API, Stroke Signs & Symptoms Discharge Data Primary Care Provider: Lynda Ortiz Attending Provider: Lynda Ortiz Admit Date/Time: 05/11/21 03:30
[2021-05-13] MEDS: MEASLES,MUMPS,RUBELLA VACC/PF 0.5 ML VIAL SUBCUT (09:26)
== END 2021-05-13 09:30 | disposition home or self-care (01) | DRG 540 ==
PROVIDERS: Admitting Provider Family Medicine; PCP Family Medicine; Referring Provider Obstetrics & Gynecology; Visit Provider Family Medicine
PROC: 0U570ZZ Destruction of Bilateral Fallopian Tubes, Open Approach (ICD-10-PCS; CPT 59514; principal; 2021-05-11 08:00)
DX: O66.2 Obstructed labor due to unusually large fetus (principal); O42.013 Preterm premature rupture of membranes, onset of labor within 24 hours of rupture, third trimester; Z30.2 Encounter for sterilization; Z3A.36 36 weeks gestation of pregnancy; Z37.0 Single live birth; Z20.822 Contact with and (suspected) exposure to COVID-19
CPT/HCPCS: 36415; 58611; 59050; 59514; 84112; 85014; 85018; 85025; 86850; 86900; 86901; 87635; C9803; G0378; G0379; J0131; J0690; J0702; J1200; J1885; J2274; J2590

== ENCOUNTER → 2021-08-28 09:33 | Outpatient (CLI) | payer OTHER, MEDICAID, SELFPAY ==
[2021-08-28 10:55] LABS: Add Manual Diff / Slide Review NO; Basophils Absolute Auto 0 /uL (0-100); Basophils Percent Auto 0.9 % (0-2); Eosinophils Absolute Auto 100 /uL (0-450); Eosinophils Percent Auto 2.6 % (2-4); Hematocrit 39.3 % (36-46); Lymphocytes Absolute Auto 1400 /uL (1100-4500); Lymphocytes Percent Auto 29.3 % (25-40); Mean Corpuscular Hemoglobin 27.8 PG (26-34); Mean Corpuscular Volume 84.3 fL (80-100); Monocytes Absolute Auto 300 /uL (0-900); Monocytes Percent Auto 7.4 % (3-14); Neutrophils Absolute Auto 2800 /uL (1500-7000); Neutrophils Percent Auto 59.8 % (50-75); Platelet Count 275 X10^3/uL (150-400); Red Blood Cell Count 4.67 X10^6/uL (4.0-5.2); Red Cell Distribution Width 14.7 % (11.6-14.8); White Blood Cell Count 4.7 X10^3/uL (4.5-11.0)
[2021-08-28 11:19] LABS: Alanine Aminotransferase 39 IU/L (<35); Albumin 4.3 g/dL (3.5-5.0); Albumin Globulin Ratio 1.5 (1.0-2.8); Alkaline Phosphatase 50 U/L (38-126); Aspartate Aminotransferase 31 IU/L (14-36); BUN Creatinine Ratio 18.8 (6-22); Blood Urea Nitrogen 12 mg/dL (7-17); C-Reactive Protein Quant < 0.5 mg/dL (<1.0); Calcium 9.4 mg/dL (8.4-10.2); Carbon Dioxide 28 mmol/L (22-32); Chloride 105 mmol/L (98-107); Estimated Glomerular Filt Rate > 60.0 mL/min (>60); Globulin 2.8 g/dL (1.7-4.1); Glucose 85 mg/dL (70-100); HEMOLYSIS < 15 (0-50); Potassium 4.5 mmol/L (3.4-5.1); Sodium 140 mmol/L (137-145); Total Protein 7.1 g/dL (6.3-8.2)
[2021-08-28 11:37] LABS: TSH w/ Reflex to FT4 0.99 uIU/mL (0.47-4.68)
== END ==
PROVIDERS: PCP Family Medicine; Referring Provider Family Medicine; Visit Provider Family Medicine
DX: L52 Erythema nodosum (principal)
CPT/HCPCS: 36415; 80053; 84443; 85025; 86140

== ENCOUNTER → 2022-07-30 17:36 | Outpatient (CLI) | payer OTHER, MEDICAID, SELFPAY ==
--- NOTE | 2022-07-30 17:42 | DI.RAD.S_ITS ---
PROCEDURE: XR SACRUM COCCYX MIN 2V INDICATIONS: Soft tissue swelling right buttocks TECHNIQUE: 3 views of the sacrum and coccyx acquired. COMPARISON: None. FINDINGS: Bones: Oblique fracture through lower sacrum/upper coccyx is seen with slight anterior displacement at fracture site. No other fracture or dislocation. Mild degenerative disc disease in lower lumbar spine at L5-S1 level is seen. Soft tissues: Visualized bowel gas pattern is normal. No suspicious soft tissue densities. IMPRESSION: Minimally displaced oblique fracture involving distal sacrum/upper coccyx as above. Dictated by: Hardik Williamson M.D. on 07/31/2022 at 9:49 Approved by: Hardik Williamson M.D. on 07/31/2022 at 9:50
== END ==
PROVIDERS: PCP Family Medicine; Referring Provider Nurse Practitioner Family; Visit Provider Nurse Practitioner Family
DX: S32.2XXA Fracture of coccyx, initial encounter for closed fracture (principal); X58.XXXA Exposure to other specified factors, initial encounter; S30.0XXA Contusion of lower back and pelvis, initial encounter
CPT/HCPCS: 72220

== ENCOUNTER → 2022-08-05 14:44 | Outpatient (CLI) | payer OTHER, MEDICAID, SELFPAY ==
--- NOTE | 2022-08-05 14:45 | DI.US.S_ITS ---
PROCEDURE: US EXTREMITY NONVASC LOWER RT INDICATIONS: BUTTOCKS SWELLING TECHNIQUE: Real-time scanning was performed of the right gluteal region , with image documentation. COMPARISON: None. FINDINGS: Sonographic images of the right clear ovaries in demonstrate complex focus of echogenicity without increased vascularity. It measures 21.6 x 13.5 x 5.1 cm. IMPRESSION: Right gluteal focus of heterogeneous echogenicity which can represent abscess versus hematoma. Dictated by: Betsy Sands M.D. on 08/06/2022 at 21:28 Approved by: Betsy Sands M.D. on 08/06/2022 at 21:28
== END ==
PROVIDERS: PCP Family Medicine; Referring Provider Nurse Practitioner Family; Visit Provider Nurse Practitioner Family
DX: S30.0XXA Contusion of lower back and pelvis, initial encounter (principal); X58.XXXA Exposure to other specified factors, initial encounter
CPT/HCPCS: 76882

== ENCOUNTER → 2023-04-13 16:49 | Outpatient (CLI) | payer OTHER, MEDICAID, SELFPAY ==
[2023-04-13 17:19] LABS: Add Manual Diff / Slide Review NO; Basophils Absolute Auto 0 /uL (0-100); Basophils Percent Auto 0.6 % (0-2); Eosinophils Absolute Auto 100 /uL (0-450); Eosinophils Percent Auto 1.4 % (2-4); Hematocrit 39.5 % (36-46); Hemoglobin 13.6 g/dL (12.0-16.0); Lymphocytes Absolute Auto 2300 /uL (1100-4500); Mean Corpuscular HGB Conc 34.4 % (30-36); Mean Corpuscular Hemoglobin 30.8 PG (26-34); Mean Corpuscular Volume 89.6 fL (80-100); Monocytes Absolute Auto 400 /uL (0-900); Monocytes Percent Auto 5.9 % (3-14); Neutrophils Absolute Auto 4500 /uL (1500-7000); Neutrophils Percent Auto 61.1 % (50-75); Platelet Count 311 X10^3/uL (150-400); Red Blood Cell Count 4.41 X10^6/uL (4.0-5.2); Red Cell Distribution Width 12.7 % (11.6-14.8); White Blood Cell Count 7.3 X10^3/uL (4.5-11.0)
[2023-04-13 17:27] LABS: Alanine Aminotransferase 26 IU/L (<35); Albumin 4.3 g/dL (3.5-5.0); Albumin Globulin Ratio 1.3 (1.0-2.8); Alkaline Phosphatase 39 U/L (38-126); Aspartate Aminotransferase 21 IU/L (14-36); Bilirubin Total 1.3 mg/dL (0.2-1.3); Blood Urea Nitrogen 12 mg/dL (7-17); Calcium 8.9 mg/dL (8.4-10.2); Carbon Dioxide 28 mmol/L (22-32); Chloride 104 mmol/L (98-107); Estimated Glomerular Filt Rate > 60 mL/min (>60); Globulin 3.3 g/dL (1.7-4.1); Glucose 91 mg/dL (70-100); HEMOLYSIS < 15 (0-50); Potassium 3.8 mmol/L (3.4-5.1); Sodium 138 mmol/L (137-145); Total Protein 7.6 g/dL (6.3-8.2)
[2023-04-13 17:56] LABS: TSH w/ Reflex to FT4 1.61 uIU/mL (0.47-4.68)
== END ==
PROVIDERS: PCP Family Medicine; Referring Provider Family Medicine; Visit Provider Family Medicine
DX: N92.6 Irregular menstruation, unspecified (principal); R10.30 Lower abdominal pain, unspecified
CPT/HCPCS: 36415; 80053; 81002; 81025; 84443; 85025

== ENCOUNTER → 2023-05-11 09:20 | Outpatient (CLI) | payer OTHER, MEDICAID, SELFPAY ==
--- NOTE | 2023-05-11 09:21 | DI.US.S_ITS ---
ULTRASOUND OF RIGHT BREAST: 05/11/2023 CLINICAL: Bloody nipple discharge right breast. Comparison is made to exams dated: 05/11/2023 ultrasound, 05/11/2023 mammogram, 04/05/2018 specimen, 04/05/2018 mammogram, 04/05/2018 localization, and 02/15/2018 ultrasound [facility]. Ultrasound of the right breast was performed on the area of interest. Lopez scale images of the real-time examination were reviewed. IMPRESSION: INCOMPLETE: NEEDS ADDITIONAL IMAGING EVALUATION There is no mammographic or sonographic abnormality seen in the left breast to correspond with the intermittently bloody discharge from the nipple. Breast MRI is recommended for further characterization in the setting of bloody nipple discharge. This exam was interpreted at Station ID: [id number]. Electronically Signed By: Yoselin ochoa/:05/11/2023 17:09:15 letter sent: Additional Imaging Needed Ultrasound BI-RADS: 0 Indeterminate
--- NOTE | 2023-05-11 09:21 | DI.MG.S_ITS ---
BILATERAL DIGITAL DIAGNOSTIC MAMMOGRAM 3D/2D: 05/11/2023 CLINICAL: Mastitis. Comparison is made to exams dated: 04/05/2018 mammogram, 02/15/2018 mammogram, and 12/13/2017 mammogram - [facility]. Both breasts are heterogeneously dense, which may obscure small masses (category c / 51-75% glandular tissue). No significant masses, calcifications, or other findings are seen in either breast. IMPRESSION: INCOMPLETE: NEEDS ADDITIONAL IMAGING EVALUATION There is no mammographic abnormality seen in the right breast to correspond with the non-bloody discharge from the nipple, however, targeted ultrasound of the right breast is recommended and will be performed immediately following this exam. Based on the Tyrer Cuzick model (a risk assessment model) the patient's lifetime risk is 10.6% and her 10 year risk is 0.8%. According to the ACR, ACS, and NCCN guidelines, an annual breast MRI exam along with mammogram is recommended if the patient's lifetime risk is 20% or greater. This exam was interpreted at Station ID: [id number]. NOTE: For mammograms, a report in lay terms will be sent to the patient. Approximately 15% of breast malignancies will not be visualized mammographically. In the management of a palpable breast mass, a negative mammogram must not discourage biopsy of a clinically suspicious lesion. Electronically Signed By: Yoselin Alves M.D. lk/:05/11/2023 10:27:12 ACR BI-RADS Category 0: Incomplete 3340F
== END ==
PROVIDERS: PCP Family Medicine; Referring Provider Surgery; Visit Provider Surgery
DX: N61.0 Mastitis without abscess (principal); R92.2 Inconclusive mammogram
CPT/HCPCS: 76642; 77066; G0279

== ENCOUNTER 2023-05-21 13:29 | Day surgery (SDC) | payer OTHER, MEDICAID, SELFPAY ==
--- NOTE | 2023-05-21 | PATH_ITS ---
[facility] Accession Number: [id number] No. of containers..01 Tissue . 01 Material submitted: . breast - RIGHT BREAST DUCT . 01 Diagnosis: Right Breast, Lumpectomy: Breast fibroglandular parenchyma and mature adipose tissue without significant pathologic abnormality. Negative for mastitis, abscess, fibrocystic change, hyperplasia, and neoplasia. MRV 05/28/2023 1224 Local . 01 Comment: The breast fibroglandular tissue shows no significant inflammation or duct dilatation. Histologic changes of a fistula tract are not seen. . 01 Electronically signed: . Edwina Jalloh MD, Pathologist NPI- [id number] . 01 Gross description: . The specimen is received in formalin labeled with the patient's name, , and right breast duct, and consists of an unoriented, yellow, lobulated soft tissue fragment measuring 2.6 x 2.0 x 1.3 cm and weighing 3 g. The specimen is serially sectioned into five slices to reveal yellow to white fibroadipose tissue with no discrete lesions identified and fibrous tissue occupying approximately 20% of the cut surface. The specimen is submitted entirely as follows: A1: Slice 1 perpendicular. A2: Slice 2. A3: Slice 3. A4: Slice 4. A5: Slice 5 perpendicular. . The specimen was removed on 05/21/2023, time not provided, cold ischemic time cannot be calculated, total fixation time is greater than 72 hours. ([id number]) /FRR 05/27/2023 0505 Local . 01 Pathologist provided ICD-10: N61.0 . 01 CPT . 675303 Specimen Comment: A courtesy copy of this report has been sent to [phone] Performed at: 01 [facility] [address], [place], [place] [id number] MD Claude Carrion MD Phone: [phone]
[2023-05-21 13:59] VITALS: BP 114/72; PULSE 64; RESP 16; TEMP 36.3; O2SAT 99; BMI 25.8
[2023-05-21] MEDS: LACTATED RINGERS 1,000 ML 100 ML IV (14:12)
--- NOTE | 2023-05-21 15:16 | PM.PREOP ---
Pre-operative Note Interval Note History & Physical reviewed/Exam performed by Physician: Yes Changes to H&P: No
[2023-05-21] MEDS: CEFAZOLIN 2 GM/100 ML PREMIX 100 ML IV (15:50)
--- NOTE | 2023-05-21 16:02 | SUR.OPER ---
Supine on padded OR bed, head on pillow, arms padded and tucked at sides, legs uncrossed, safety belt at thigh, tape over blanket over lower legs .
[2023-05-21] MEDS: BUPIVACAINE 0.5% (PF) 30 ML VIAL INJ (16:06)
--- NOTE | 2023-05-21 16:27 | PM.OP.1 ---
Operative Date/Time/Diagnoses Date of procedure: 05/21/23 Time of procedure: 16:34 Pre-op diagnosis: Mammary duct fistula Post-op diagnosis: same Procedure & Clinicians Procedure: Right lumpectomy Same procedure as scheduled: Yes Indications: 37-year-old woman with a chronic draining wound which occasionally expresses milk of the right breast. Surgeon: Jam Heath Click Yes if Unassisted: Yes Anesthesia Type: General Operative Notes Findings: Abnormally dilated ductal structure right breast 3 tracking to the skin Specimen(s): other (Right breast lumpectomy) Estimated Blood Loss (mL): 10 Procedure in detail: Patient was brought to the operating room placed supine on the table. Bilateral lower extremity compression devices were applied. General anesthesia was induced and she was intubated with an LMA. She received 2 g of Ancef prior to incision. She was then prepped and draped in sterile fashion and a time-out was performed. A inferior curvilinear periareolar incision was made and the nipple areolar complex was elevated. A lacrimal probe was then placed through the chronic draining sinus which was at at 3:00 a.m. position and this tracked through the skin and into ductal structures. This ductal system was excised using electrocautery. There was no firm or palpable mass. Hemostasis was achieved the subcutaneous tissue was closed with Vicryl followed by 4-0 Monocryl and Dermabond. Patient tolerated the procedure well and was transferred to recovery in stable condition. Complications: none Post-operative Condition: stable Disposition: same day surgery
[2023-05-21 16:29] VITALS: BP 129/67; PULSE 70; RESP 12; TEMP 36.1; O2SAT 99
[2023-05-21 16:34] VITALS: BP 107/55; PULSE 74; RESP 12; O2SAT 100
[2023-05-21 16:40] VITALS: BP 100/59; PULSE 79; RESP 20; O2SAT 100
[2023-05-21 16:45] VITALS: BP 110/64; PULSE 64; RESP 10; O2SAT 99
[2023-05-21] MEDS: OXYCODONE IR 5 MG TABLET PO (16:48)
[2023-05-21] MEDS: ACETAMINOPHEN 325 MG TABLET 650 MG PO (16:49)
== END 2023-05-21 16:58 | disposition home or self-care (01) ==
PROVIDERS: PCP Family Medicine; Referring Provider Surgery; Visit Provider Surgery
PROC: (CPT 19301; principal; 2023-05-21 15:00)
DX: N61.0 Mastitis without abscess (principal)
CPT/HCPCS: 19120; J0690; J1100; J1885; J2250; J2405; J2704; J3010

== ENCOUNTER → 2025-07-23 08:53 | Outpatient (CLI) | payer OTHER, SELFPAY ==
[2025-07-23 09:36] LABS: Hematocrit 39.5 % (36-46); Hemoglobin 13.4 g/dL (12.0-16.0); Mean Corpuscular HGB Conc 33.9 % (30-36); Mean Corpuscular Hemoglobin 30.9 PG (26-34); Mean Corpuscular Volume 91.3 fL (80-100); Platelet Count 234 X10^3/uL (150-400)
[2025-07-23 10:07] LABS: Alanine Aminotransferase 17 IU/L (<35); Albumin 4.2 g/dL (3.5-5.0); Albumin Globulin Ratio 1.7 (1.0-2.8); Alkaline Phosphatase 37 U/L (38-126); Blood Urea Nitrogen 15 mg/dL (7-17); Calcium 9.5 mg/dL (8.4-10.2); Carbon Dioxide 26 mmol/L (22-32); Chloride 104 mmol/L (98-107); Estimated Glomerular Filt Rate > 60 mL/min (>60); Globulin 2.5 g/dL (1.7-4.1); Glucose 84 mg/dL (70-99); HEMOLYSIS < 15 (0-50); Potassium 4.4 mmol/L (3.4-5.1); Sodium 138 mmol/L (137-145); Total Protein 6.7 g/dL (6.3-8.2)
[2025-07-23 10:37] LABS: TSH w/ Reflex to FT4 1.04 uIU/mL (0.47-4.68)
[2025-07-23 11:30] LABS: Urine N gonorrhoeae NOT DETECTED
[2025-07-23 11:37] LABS: Urine Chlamydia NOT DETECTED
== END ==
PROVIDERS: PCP Family Medicine; Referring Provider Family Medicine; Visit Provider Family Medicine
DX: N93.9 Abnormal uterine and vaginal bleeding, unspecified (principal); N92.0 Excessive and frequent menstruation with regular cycle; N93.8 Other specified abnormal uterine and vaginal bleeding
CPT/HCPCS: 36415; 80053; 84443; 85027; 86592; 87491; 87591

== ENCOUNTER → 2025-07-26 07:15 | Outpatient (CLI) | payer OTHER, SELFPAY ==
--- NOTE | 2025-07-26 07:16 | DI.US.S_ITS ---
PROCEDURE: US PELVIC COMPLETE INDICATIONS: POSTCOITAL HEAVY BLEEDING WITH CLOTS TECHNIQUE: Real-time scanning was performed of the pelvic organs, with image documentation. Additional endovaginal scanning was necessary due to incomplete visualization of the adnexal and endometrial structures by transabdominal scanning. COMPARISON: [facility], [place], PELVIC COMPLETE, 04/03/2016, 17:15. FINDINGS: Uterus: Uterus is retroverted and normal in size at 7.9 x 6.0 x 5.7 cm. The myometrium is heterogenous with irregular shadowing may reflect adenomyosis. The endometrium measures 7.4 mm combined thickness. Ovaries: The right ovary measures 4.2 x 2.4 x 1.7 cm, with a calculated ovarian volume of 9.2 cc. The left ovary measures 4.3 x 4.1 x 3.4 cm, with a calculated ovarian volume of 31.7 cc. The ovaries have a normal sonographic appearance. Complex right ovarian cyst 1.8 cm and 1.7 cm. Left ovarian hemorrhagic cyst 3.8 cm. No adnexal masses are seen. Other: No pathologic free abdominal or pelvic fluid. IMPRESSION: Prominent 3.8 cm left ovarian hemorrhagic cyst. Possible uterine adenomyosis Approved by: Brennan Mtz M.D. on 07/26/2025 at 16:46
== END ==
LOC: US 07:16
PROVIDERS: PCP Family Medicine; Referring Provider Family Medicine; Visit Provider Family Medicine
DX: N93.8 Other specified abnormal uterine and vaginal bleeding (principal); N83.202 Unspecified ovarian cyst, left side
CPT/HCPCS: 76830; 76856